=== PATIENT | female | born 1990 | race Caucasian/White ===

== ENCOUNTER → 2020-04-04 08:11 | Outpatient (BNVA) | payer OTHER, SELFPAY | PROVIDERS: PCP Family Medicine; Referring Provider Family Medicine; Visit Provider Surgery | DX: E66.01 Morbid (severe) obesity due to excess calories (principal); Z68.43 Body mass index [BMI] 50.0-59.9, adult | CPT/HCPCS: 99214; Q3014 ==

== ENCOUNTER 2020-04-06 11:49 | Outpatient (REF) | payer MEDICARE, MEDICAID, SELFPAY ==
[2020-04-06 13:07] LABS: MANUAL DIFF FLAG NO
[2020-04-06 13:12] LABS: Basophils Percent Auto 0.3 % (0-2); Eosinophils Absolute Auto 0.2 X10*3/uL (0.0-0.4); Eosinophils Percent Auto 2.7 % (0-4); Hematocrit 38.7 % (37-47); Hemoglobin 12.6 g/dl (12.0-16.0); Imm Gran Abs Auto 0.01 X10*3/uL (0.00-0.03); Imm Gran Pct Auto 0.1 % (0.0-0.4); Lymphocytes Absolute Auto 2.3 X10*3/uL (1.2-4.9); Lymphocytes Percent Auto 33.3 % (20-40); Mean Corpuscular HGB Conc 32.6 g/dl (31.0-35.0); Mean Corpuscular Hemoglobin 25.3 pg (27.0-33.0); Mean Corpuscular Volume 77.6 fL (80-98); Mean Platelet Volume 10.4 fL (9.4-12.3); Monocytes Absolute Auto 0.4 X10*3/uL (0.1-1.2); Monocytes Percent Auto 6.2 % (2-11); Neutrophils Percent Auto 57.4 % (45-73); Platelet Count 371 X10*3/uL (160-400); Red Blood Count 4.99 X10*6/uL (4.20-5.50); Red Cell Distribution Width 16.3 % (11.0-16.0); White Blood Count 6.9 X10*3/uL (4.8-10.8)
[2020-04-06 13:49] LABS: Alanine Aminotransferase 27 U/L (0-31); Albumin Level 4.2 g/dL (3.5-5.0); Alkaline Phosphatase 120 U/L (39-117); Anion Gap 14 (12-20); Aspartate Amino Transferase 24 U/L (5-31); Bilirubin Total 0.6 mg/dL (0.0-1.0); Blood Urea Nitrogen 10 mg/dL (9-16); C Reactive Protein 1.68 mg/dL (< or = 0.50); Calcium 8.8 mg/dL (8.4-10.2); Carbon Dioxide 23 mmol/L (22-29); Chloride 105 mmol/L (96-108); Cholesterol 135 mg/dL; Estimated Glomerular Filt Rate > 60; Glucose Random 80 mg/dL (60-115); HDL Cholesterol 52 mg/dL; Iron 34 mcg/dL (30-160); LDL Cholesterol Calculated 70 mg/dl; Percent Iron Saturation 8 % (15-50); Potassium 4.1 mmol/l (3.3-5.1); Sodium 138 mmol/L (135-145); Total Iron Binding Capacity 424 mcg/dL (228-428); Total Protein 7.2 g/dL (6.5-8.0); Triglycerides 65 mg/dL; Unsaturated Iron Binding 390 ug/dL
[2020-04-06 14:12] LABS: Estimated Average Glucose 100 mg/dL; Hemoglobin A1c % 5.1 %
[2020-04-06 14:13] LABS: Ferritin 5 ng/mL (10-122); TSH reflex Free T4 2.58 mIU/mL (0.32-4.0); Vitamin D 25-OH Total 25.6 ng/mL (>30)
[2020-04-09 13:52] LABS: Insulin Level Total 8.2 uIU/mL
[2020-04-09 16:32] LABS: PTHI 63 pg/mL (14-64)
[2020-04-09 17:21] LABS: Zinc 65 mcg/dL (60-130)
[2020-04-09 21:54] LABS: Folate 10.9 ng/mL (> or = 4.0); Vitamin B12 506 pg/mL (200-900)
[2020-04-11 12:31] LABS: Vitamin B1 11 nmol/L (8-30)
[2020-04-11 17:11] LABS: Vitamin A 28 mcg/dL (38-98)
== END 2020-04-06 11:50 | disposition home or self-care (01) ==
LOC: HO.LAB 11:49
PROVIDERS: PCP Family Medicine; Visit Provider Surgery
DX: E66.01 Morbid (severe) obesity due to excess calories (principal)
CPT/HCPCS: 36415; 80053; 80061; 82306; 82607; 82728; 82746; 83036; 83525; 83540; 83970; 84425; 84443; 84590; 84630; 85025; 86140

== ENCOUNTER → 2020-04-13 08:08 | Outpatient (BNVA) | payer MEDICAID, OTHER, SELFPAY | PROVIDERS: PCP Family Medicine; Referring Provider Family Medicine; Visit Provider Dietitian, Registered | DX: Z76.89 Persons encountering health services in other specified circumstances (principal) ==

== ENCOUNTER 2020-04-16 08:50 | Outpatient (REF) | payer OTHER, SELFPAY ==
--- NOTE | 2020-04-16 08:57 | FL_ITS ---
EXAMINATION: XR GI SERIES CLINICAL INFORMATION: Obesity. COMPARISON: None TECHNIQUE: Routine upper GI air contrast study was performed. FINDINGS: Following oral administration of thick barium and effervescent granules there is normal propagation of bolus from the oral cavity through the pharynx, esophagus into stomach without any evidence of obstruction, narrowing or stricture. On placing patient supine and prone lying there is normal course, caliber and peristalsis of stomach, duodenal bulb and sweep. No gastroesophageal reflux or hiatal hernia seen. FLUOROSCOPY TIME: 1.9 minutes DOSE AREA PRODUCT: 58.4 uGy-m2 (microgray-meter squared) IMPRESSION: Unremarkable upper GI air-contrast study.
[2020-04-19 13:47] LABS: H Pylori Breath Test NOT DETECTED (NOT DETECTED)
== END 2020-04-16 08:51 | disposition home or self-care (01) ==
LOC: HO.XRAY 08:50
PROVIDERS: PCP Family Medicine; Visit Provider Surgery
DX: Z01.818 Encounter for other preprocedural examination (principal); E66.01 Morbid (severe) obesity due to excess calories; A04.8 Other specified bacterial intestinal infections; K21.9 Gastro-esophageal reflux disease without esophagitis
CPT/HCPCS: 74240; 83013; 99211

== ENCOUNTER 2020-04-23 09:39 | Outpatient (REF) | payer OTHER, SELFPAY ==
--- NOTE | 2020-04-23 | US_ITS ---
EXAMINATION: CHEST. ULTRASOUND ABDOMEN COMPLETE. CLINICAL INFORMATION: Obesity. Preop exam. COMPARISON: None TECHNIQUE: Chest 2 views. Routine complete abdomen ultrasound was performed. FINDINGS: CHEST: The lungs are well-expanded and clear of acute process. The heart size and pulmonary vascularity is normal. No gross bony pneumonia seen. ABDOMEN ULTRASOUND: The pancreas is homogeneous echotexture without focal lesion or enlargement. The liver is normal size, shape and position. There is mild increased echogenicity without any focal lesion. No intrahepatic ductal dilatation seen. Normal hepatopedal flow seen in the portal vein on Doppler exam. Right hepatic lobe measures 14.1 cm and left hepatic lobe measures 8.3 cm. On Elastography the median value is 1.41 m/s. IQR/median is 0.11. There are no echogenic gallstones or wall thickening. Right kidney measures 10.0 cm in length and left kidney measures 11.0 cm in length. There are no echogenic stones, cyst or hydronephrosis. There is minimal fullness of calyces left kidney. Spleen measures 8.7 cm in length. US/US abdomen comp w elastography IMPRESSION: Unremarkable chest exam. Mild hepatic steatosis without focal lesion. Mild fullness left kidney pelvis. Rest of the abdomen is unremarkable. Elastography: Normal to mild, Metavir score F0 - F1.
--- NOTE | 2020-04-23 09:45 | XR_ITS ---
EXAMINATION: CHEST. ULTRASOUND ABDOMEN COMPLETE. CLINICAL INFORMATION: Obesity. Preop exam. COMPARISON: None TECHNIQUE: Chest 2 views. Routine complete abdomen ultrasound was performed. FINDINGS: CHEST: The lungs are well-expanded and clear of acute process. The heart size and pulmonary vascularity is normal. No gross bony pneumonia seen. ABDOMEN ULTRASOUND: The pancreas is homogeneous echotexture without focal lesion or enlargement. The liver is normal size, shape and position. There is mild increased echogenicity without any focal lesion. No intrahepatic ductal dilatation seen. Normal hepatopedal flow seen in the portal vein on Doppler exam. Right hepatic lobe measures 14.1 cm and left hepatic lobe measures 8.3 cm. On Elastography the median value is 1.41 m/s. IQR/median is 0.11. There are no echogenic gallstones or wall thickening. Right kidney measures 10.0 cm in length and left kidney measures 11.0 cm in length. There are no echogenic stones, cyst or hydronephrosis. There is minimal fullness of calyces left kidney. Spleen measures 8.7 cm in length. XR/XR chest 2V IMPRESSION: Unremarkable chest exam. Mild hepatic steatosis without focal lesion. Mild fullness left kidney pelvis. Rest of the abdomen is unremarkable. Elastography: Normal to mild, Metavir score F0 - F1.
--- NOTE | 2020-04-23 11:01 | ECG_ITS ---
Test Reason : PREOP SOB Blood Pressure : / mmHG Vent. Rate : 078 BPM Atrial Rate : 077 BPM P-R Int : 148 ms QRS Dur : 078 ms QT Int : 388 ms P-R-T Axes : 035 027 025 degrees QTc Int : 442 ms Normal sinus rhythm Normal ECG When compared with ECG of 23-APR-2020 11:19, No significant changes seen Referred By: Bharathi Junior Electronically Signed By: DAVID FLOOD MD [facility]ILITYKaren
== END 2020-04-23 09:40 | disposition home or self-care (01) ==
LOC: HO.US 09:39
PROVIDERS: PCP Family Medicine; Visit Provider Surgery
DX: Z01.818 Encounter for other preprocedural examination (principal); E66.01 Morbid (severe) obesity due to excess calories; K21.9 Gastro-esophageal reflux disease without esophagitis
CPT/HCPCS: 71046; 76705; 76981; 93005

== ENCOUNTER → 2020-05-02 08:27 | Outpatient (BNVA) | payer OTHER, SELFPAY | PROVIDERS: PCP Family Medicine; Visit Provider Dietitian, Registered | DX: Z76.89 Persons encountering health services in other specified circumstances (principal) ==

== ENCOUNTER → 2020-05-09 08:28 | Outpatient (REF) | payer OTHER, SELFPAY ==
--- NOTE | 2020-05-09 08:43 | CA_ITS ---
Acquisition Time: 2020-05-09 09:45:18 Total Exercise Time: 00:05:59 Test Indications: Pre-Op Evaluation Medications: Protocol: ARTIE Max HR: 171 BPM 90% of Pred: 190 BPM Max BP: 124/070 mmHG Max Work Load: 7.0 METS Exercise stress test using Artie protocol. Total of 5 min 59 sec. METS 7. Tolerated well denies any anginal sx. EKG without any arrhythmias, no ischemic changes. Normotensive response to exercise. Test reviewed with Dr. Lauren Referred By: Bharathi Junior Overread By: Zuleima Almanzar
--- NOTE | 2020-05-09 10:00 | CA_ITS ---
Transthoracic Echocardiogram Patient (Last, First, Middle): Luanne Wood, Gender: Female Date of : 1990 Age: 29 Procedure Date: 05/09/2020 Procedure Type: Transthoracic Echocardiogram Location: OP Height: 152.4 cm Weight: 116.12 kg BSA: 2.07 m2 Heart Rate: bpm BP: 138 / 70 mmHg Merchandise Marker: Referring MD: Bharathi Junior MD Change Booth Attendant: Lionel Jeong MD Symptoms: I10 HTN, Z01.818 PRE OP Study Quality: Fair ECG Rhythm: Sinus Conclusions: - Essentially normal study Findings Procedure Information Contrast agent, definity, is being given per protocol without apparent complications. Left Ventricle Normal left ventricular size, thickness, and systolic function. The visually estimated ejection fraction is between 60-65%. Diastolic function is normal for age. Right Ventricle Normal right ventricular cavity size and systolic function. Atria Both atria are normal in size. Interatrial shunt cannot be excluded. Aortic Valve The aortic valve was not well visualized. There is no aortic valve stenosis. There is no aortic valve regurgitation. Mitral Valve Likely normal mitral valve structure and function. There is trace mitral valve regurgitation. There is no mitral valve stenosis. Pulmonic Valve The pulmonic valve was not well visualized. Tricuspid Valve Likely normal tricuspid valve structure and function. There is trace tricuspid valve regurgitation. The right ventricular systolic pressure is normal. Great Vessels All visible segments of the aorta are normal in size. The pulmonary artery was not well visualized. Venous The inferior vena cava is normal in size and collapses greater than 50% with inspiration. Pericardium/Pleural There is no evidence of pericardial effusion. Prior Study Comparison No prior study available for comparison. Measurements 2D Linear Measurements IVSd: 1.28 0.6-0.9/0.6-1.0 cm LVIDd: 4.17 3.9-5.3/4.2-5.9 cm LVIDd Index: 2.01 2.4-3.2/2.2-3.1 cm/m2 LVIDs: 2.27 2.0-3.6 cm LVPWd: 1.28 0.7-1.1 cm Ao Root: 2.80 2.1-3.5 cm LA Diam: 3.00 2.7-3.8/3.0-4.0 cm LAIDs Index: 1.45 1.5-2.3 cm/m2 LV Mass: 241.60 67-162/88-224 g LV Mass Index: 116.72 43-95/49-115 g/m2 LVOT Diam: 2.00 3.0+(-)1.3 cm Mitral Valve MV Pk E: 0.91 MV PK A: 0.59 MV Decel Time: 130.00 E/A: 1.60 E'Lateral: 13.50 E'Medial: 9.09 E/E' Med: 10.00 E/E' Lat: 6.80 PHT: 38.00 MVA PHT: 5.79 Decel [place]: 7.11 Aortic Valve AoV Pk Stephen: 1.25 AoV Mn Stephen: 0.85 AoV VTI: 0.25 AoV Pk Grad: 6.00 Aov Mn Grad: 3.00 IGOR Cont.VTI: 2.51 LVOT LVOT Pk Stephen: 1.00 LVOT Mn Stephen: 0.63 LVOT VTI: 0.20 LVOT Pk Grad: 4.00 LVOT Mn Grad: 2.00 LVOT Diam: 2.00 LVOT Area: 3.14 Diastolic Function MV Pk E: 0.91 MV Pk A: 0.59 E/A: 1.60 E'Medial: 9.09 E/E' Med: 10.00 E' Laterial: 13.50 E/E' Lat: 6.80 Tricuspid Valve TR Pk Stephen: 1.40 TR Pk Grad: 8.00 RA Press: 3.00 RVSP: 11.00 Great Vessels Aorta Ao Root-2D: 2.80 2.0-3.7 cm Ao Asc: 2.90 2.1-3.4 cm Pulmonary Valve PV Pk Stephen: 1.18 Peak PV Grad: 6.00 Updated in Other Vendor System with Status of Final Lionel Jeong MD electronically signed on 05/10/2020 3:01:45 PM with status of Final
== END ==
LOC: HO.CARD 08:28
PROVIDERS: PCP Family Medicine; Visit Provider Surgery
DX: Z01.818 Encounter for other preprocedural examination (principal); I21.29 ST elevation (STEMI) myocardial infarction involving other sites; R94.31 Abnormal electrocardiogram [ECG] [EKG]; I10 Essential (primary) hypertension
CPT/HCPCS: 93017; 93306; Q9957

== ENCOUNTER → 2020-05-30 08:27 | Outpatient (BNVA) | payer OTHER, SELFPAY | PROVIDERS: PCP Family Medicine; Visit Provider Surgery | DX: Z13.89 Encounter for screening for other disorder (principal) | CPT/HCPCS: Q3014 ==

== ENCOUNTER → 2020-06-13 13:45 | Outpatient (BNVA) | payer OTHER, SELFPAY | PROVIDERS: PCP Family Medicine; Visit Provider Surgery | DX: E66.01 Morbid (severe) obesity due to excess calories (principal); K21.9 Gastro-esophageal reflux disease without esophagitis | CPT/HCPCS: Q3014 ==

== ENCOUNTER 2020-06-15 09:06 | Outpatient (REF) | payer OTHER, SELFPAY ==
[2020-06-15 10:27] LABS: MANUAL DIFF FLAG NO
[2020-06-15 10:36] LABS: Basophils Percent Auto 0.2 % (0-2); Eosinophils Absolute Auto 0.2 X10*3/uL (0.0-0.4); Eosinophils Percent Auto 2.9 % (0-4); Hematocrit 43.5 % (37-47); Hemoglobin 14.3 g/dl (12.0-16.0); Imm Gran Abs Auto 0.01 X10*3/uL (0.00-0.03); Imm Gran Pct Auto 0.1 % (0.0-0.4); Lymphocytes Absolute Auto 2.8 X10*3/uL (1.2-4.9); Lymphocytes Percent Auto 33.7 % (20-40); Mean Corpuscular HGB Conc 32.9 g/dl (31.0-35.0); Mean Corpuscular Hemoglobin 25.5 pg (27.0-33.0); Mean Corpuscular Volume 77.5 fL (80-98); Mean Platelet Volume 10.2 fL (9.4-12.3); Monocytes Absolute Auto 0.6 X10*3/uL (0.1-1.2); Monocytes Percent Auto 7.4 % (2-11); Neutrophils Absolute Auto 4.6 X10*3/uL (2.0-8.3); Neutrophils Percent Auto 55.7 % (45-73); Platelet Count 371 X10*3/uL (160-400); Red Blood Count 5.61 X10*6/uL (4.20-5.50); Red Cell Distribution Width 19.2 % (11.0-16.0); White Blood Count 8.2 X10*3/uL (4.8-10.8)
[2020-06-15 10:44] LABS: INTERNATIONAL NORM RATIO 1.1 (0.9-1.1); Prothrombin Time 13.4 SEC (10.8-13.0)
[2020-06-15 10:49] LABS: Alanine Aminotransferase 39 U/L (0-31); Albumin Level 4.2 g/dL (3.5-5.0); Alkaline Phosphatase 132 U/L (39-117); Anion Gap 17 (12-20); Aspartate Amino Transferase 28 U/L (5-31); Bilirubin Total 1.2 mg/dL (0.0-1.0); Blood Urea Nitrogen 13 mg/dL (9-16); C Reactive Protein 1.71 mg/dL (< or = 0.50); Calcium 9.1 mg/dL (8.4-10.2); Carbon Dioxide 19 mmol/L (22-29); Chloride 105 mmol/L (96-108); Cholesterol 148 mg/dL; Estimated Average Glucose 100 mg/dL; Estimated Glomerular Filt Rate > 60; Glucose Random 90 mg/dL (60-115); HDL Cholesterol 53 mg/dL; Hemoglobin A1c % 5.1 %; LDL Cholesterol Calculated 76 mg/dl; Potassium 4.2 mmol/l (3.3-5.1); Sodium 137 mmol/L (135-145); Total Protein 7.8 g/dL (6.5-8.0); Triglycerides 96 mg/dL
[2020-06-15 11:10] LABS: TSH reflex Free T4 4.69 mIU/mL (0.32-4.0)
[2020-06-15 12:20] LABS: Free T4 (Free Thyroxine) 1.12 ng/dL (0.71-1.85)
[2020-06-16 06:57] LABS: Insulin Level Total 8.6 uIU/mL
== END 2020-06-15 09:07 | disposition home or self-care (01) ==
LOC: HO.LAB 09:06
PROVIDERS: Visit Provider Surgery
DX: I21.29 ST elevation (STEMI) myocardial infarction involving other sites (principal); R21 Rash and other nonspecific skin eruption
CPT/HCPCS: 36415; 80053; 80061; 83036; 83525; 84439; 84443; 85025; 85610; 85730; 86140; 99212

== ENCOUNTER 2020-06-19 06:14 | Inpatient (IN) | payer OTHER, SELFPAY ==
[2020-06-14 14:10] VITALS: BMI 48.6
--- NOTE | 2020-06-18 10:13 | HO.ANESPROP2 ---
Documented by User: Jessy Nguyen 06/18/20 10:20 HPI - Anesthesia Eval Consult details Narrative: 29yo F for Gastrectomy Sleeve,egd,poss diaphragmatic hernia,poss ventral hernia,poss open, PMFSH Past Medical History Medical History (Updated 06/19/20 @ 08:05 by Roula Jerez) Anemia Anxiety Depression GERD (gastroesophageal reflux disease) Hx of migraine headaches Morbid obesity [place] (obstructive sleep apnea) Rash and nonspecific skin eruption Family History Family History Father Blood clot in vein Heart disease Mother No problems noted. Brother No problems noted. Surgical History Surgical History History of esophagogastroduodenoscopy (EGD) S/P tonsillectomy Social History Social History Are you a primary care connector to a significant other at home: No Do you presently have visiting nurse or other home services: No Alcohol intake: current Alcohol intake frequency: other Smoking Status: Never smoker Use of substances other than those prescribed or required for medical reasons: Yes Substance Use Type: Marijuana Substance Use Frequency: Socially Have you been hit, kicked, punched, or otherwise hurt by someone within the past year? If so, by whom?: No Advance Directives: Yes Advance Directives Information Provided: Yes Advance Directives on File: Yes Advance Directives Date on File: 04/16/20 Recently lost weight without trying: No Meds Allergies Allergy/AdvReac Type Severity Reaction Status Date / Time No Known Allergies Allergy Verified 06/15/20 10:41 [No Known Allergies*] Home Medications Medication Instructions Recorded Confirmed Type bupropion HCl 150 mg 24 hr tablet, 150 mg PO QAM 04/04/20 06/15/20 History extended release famotidine 40 mg tablet 40 mg PO DAILY 04/04/20 06/15/20 History fluoxetine 40 mg capsule 80 mg PO QAM 04/04/20 06/15/20 History quetiapine 50 mg tablet 50 mg PO BEDTIME 04/04/20 06/15/20 History Exam Exam Date and Time: June 18, 2020 1013 Height,Weight and Vital Signs: Height 5 ft Weight 112.854 kg Pertinent Lab Results Pertinent Lab Results: Laboratory Tests 06/15/20 09:49 Blood Type A Positive Antibody Screen NEGATIVE Laboratory Tests 06/15/20 06/15/20 09:47 09:47 WBC 8.2 Hgb 14.3 Hct 43.5 Plt Count 371 Sodium 137 Potassium 4.2 Chloride 105 Carbon Dioxide 19 L BUN 13 Creatinine 0.79 Laboratory Tests 06/15/20 06/15/20 09:47 09:47 PT 13.4 H INR 1.1 APTT 40.0 H Total Bilirubin 1.2 H AST 28 ALT 39 H Alkaline Phosphatase 132 H C-Reactive Protein 1.71 H Total Protein 7.8 Albumin 4.2 TSH 4.69 H Free T4 1.12 Narrative Narrative: EKG 03/2020: Normal sinus rhythm Septal infarct , age undetermined Abnormal ECG When compared with ECG of 02-APR-2019 14:27, Septal infarct is now Present ECHO 04/2020: - Essentially normal study Stress 04/2020: Exercise stress test using Markel protocol. Total of 5 min 59 sec. METS 7. Tolerated well denies any anginal sx. EKG without any arrhythmias, no ischemic changes. Normotensive response to exercise. Documented by User: Roula Jerez 06/19/20 08:05 [facility] Past Medical History Medical History (Updated 06/19/20 @ 08:05 by Roula Jerez) Anemia Anxiety Depression GERD (gastroesophageal reflux disease) Hx of migraine headaches Morbid obesity [place] (obstructive sleep apnea) Rash and nonspecific skin eruption Family History Family History Father Blood clot in vein Heart disease Mother No problems noted. Brother No problems noted. Family history of problems with anesthesia: No Surgical History Surgical History History of esophagogastroduodenoscopy (EGD) S/P tonsillectomy History of Problems with Anesthesia: No Social History Social History Are you a primary care connector to a significant other at home: No Do you presently have visiting nurse or other home services: No Alcohol intake: current Alcohol intake frequency: other Smoking Status: Never smoker Use of substances other than those prescribed or required for medical reasons: Yes Substance Use Type: Marijuana Substance Use Frequency: Socially Have you been hit, kicked, punched, or otherwise hurt by someone within the past year? If so, by whom?: No Advance Directives: Yes Advance Directives Information Provided: Yes Advance Directives on File: Yes Advance Directives Date on File: 04/16/20 Recently lost weight without trying: No Meds Allergies Allergy/AdvReac Type Severity Reaction Status Date / Time No Known Allergies Allergy Verified 06/15/20 10:41 [No Known Allergies*] Home Medications Medication Instructions Recorded Confirmed Type bupropion HCl 150 mg 24 hr tablet, 150 mg PO QAM 04/04/20 06/15/20 History extended release famotidine 40 mg tablet 40 mg PO DAILY 04/04/20 06/15/20 History fluoxetine 40 mg capsule 80 mg PO QAM 04/04/20 06/15/20 History quetiapine 50 mg tablet 50 mg PO BEDTIME 04/04/20 06/15/20 History Exam Height,Weight and Vital Signs: Vital Signs Temp Pulse Resp BP Pulse Ox 06/19/20 06:21 97.7 F 103 H 18 144/97 H 97 Lab Results 06/15/20 06/19/20 06/19/20 Range/Units 09:49 06:10 06:10 Urine Test NEGATIVE (NEGATIVE) COVID-19 (AMA) Negative (Negative) COVID-19 Clin Com See Note Blood Type A Positive Antibody Screen NEGATIVE Airway Mallampati Class: II TM Dist: >3cm Neck ROM: Full Partial: Upper Loose/Missing/Broken Teeth: Yes (Missing top front- wears partial dentures) Heart: RRR Lungs: CTAB Assessment and Plan Assessment Anesthesia Assessment: Anesthesia Plan Discussed and Chart Reviewed Final Anesthetic Review NPO: Yes ASA Class: III Final Preanesthetic Review: No Changes in Pt Med Stat, Meds/Allgs Chart Reviewed, Consent Obtained/Reviewed and Anes Risks/Benef Reviewed Patient Risk: High Procedure Risk: Intermediate Assessment/Block/Sedation in SS: Assess/Block/Sedation- Anesthetic Plan Anesthetic Plan: GA Disposition: Extended PACU
--- NOTE | 2020-06-18 14:58 | MHC.SHP ---
Pre-Procedural Eval Section A The patient is an INPATIENT: Yes The History & Physical has been completed within 30 days and I have reviewed it.: Yes Section B Chief Complaint: severe obesity Details of Present Illness: Morbid obesity Relevant Family History (Specify if Yes): No Relevant Social History: None Present Medications: see Short Stay Collaborative assessment Medical History: No relevant PMH History of Previous Operations: No relevant previous surgery Allergies: Allergies Allergy/AdvReac Type Severity Reaction Status Date / Time No Known Allergies Allergy Verified 06/15/20 10:41 [No Known Allergies*] Review of Systems Sugical H&P ROS: Negative: Constitution, Cardiovascular, Respiratory, Neurological, Psychiatric, Hem-Onc, Allergic/Immunologic, Gastrointestinal, Genitourinary, Musculoskeletal, Integumentary, Endocrine and Eyes/Ears/Nose/Throat Exam Surgical H&P Exam: Normal: HEENT, Normal: Heart, Normal: Lungs, Normal: Extremities, Normal: Abdomen, Normal: Skin and Normal: Neurological Plan Diagnosis/Plan: Unchanged I have reviewed the history and physical and performed a pertinent physical examination on my patient. No changes have occurred unless specified.
[2020-06-19] VITALS (13 sets, daily range): BP systolic 107–164; BP diastolic 51–97; PULSE 79–140; RESP 18–20; TEMP 36.2–36.8; O2SAT 83–99
--- NOTE | 2020-06-19 | ECG_ITS ---
Test Reason : TACHYCARDIA Blood Pressure : / mmHG Vent. Rate : 131 BPM Atrial Rate : 131 BPM P-R Int : 112 ms QRS Dur : 084 ms QT Int : 398 ms P-R-T Axes : 000 029 021 degrees QTc Int : 587 ms Sinus tachycardia Otherwise normal ECG When compared with ECG of 19-JUN-2020 11:07, No significant change was found Referred By: Roula Jerez Electronically Signed By: MARIZA TANNER MD MTDD
[2020-06-19 06:37] LABS: UPreg QC Valid YES; Urine Pregnancy NEGATIVE (NEGATIVE)
[2020-06-19 06:53] LABS: COVID-19 Test Negative (Negative)
[2020-06-19] MEDS: ceFAZolin Sodium/Dextrose,Iso 2 GM/50 ML PIGGYBACK IV ×2 (06:57→13:46)
[2020-06-19] MEDS: Lactated Ringers 1,000 ML 100 ML IVCONT (06:57)
[2020-06-19] MEDS: Lactated Ringers 1,000 ML 999 ML IVCONT (06:58)
--- NOTE | 2020-06-19 07:23 | PC.NURSE ---
pt voided in br steady gait
--- NOTE | 2020-06-19 10:50 | P.BOP_ITS ---
Brief Operative Note Date of Service: 06/19/20 Pre-op diagnosis: Morbid obesity with comorbidities Post-op diagnosis: same Procedure: INITIAL PATIENT BMI ON PRESENTATION AT OUR OFFICE: 54 kg.m2 LAST BMI BEFORE SURGERY: 48.9 kg/m2 COMORBIDITIES: GERD, Depression, Anxiety, liver steatosis The patient participated in an intensive weekly lifestyle intervention and exercise program during which the patient has lost between the initial office visit and the last preoperative visit 31.5lbs, or 11.42% of initial actual body weight. The patient met the BMI-criteria for bariatric surgery based on the BMI on initial presentation. The patient should not be penalized for achieving such weight loss because it is not sustainable long-term without surgical intervention and it was achieved in preparation for bariatric surgery under my direction and based on my published research ([email or web address] and [email or web address]) that a 10% preoperative weight loss improves long-term weight loss after surgery and reduces perioperative complications. Insurance carriers such as [facility] have endorsed my recommendations and have included in their policies criteria to in clude a 10% preoperative weight loss requirement. PROCEDURE: Esophago-gastroscopy, laparoscopic sleeve gastrectomy and laparoscopic gastropexy INDICATIONS: This is a 29 year-old female who was electively scheduled for laparoscopic, possibly open sleeve gastrectomy. The risks and complications of the procedure were discussed with the patient in advance, particularly the possibility of ; pulmonary embolism; staple line leak; bleeding; GERD; cardiac, pulmonary, or renal complications; as well as long-term problems such as insufficient weight loss, vitamin deficiency, strictures, or ulcers. The patient understood all the risks, and was in agreement to proceed with surgery. DESCRIPTION OF PROCEDURE: After informed consent was obtained from the patient, the patient was given preoperative antibiotics, and was transferred to the operating room. After successful induction of general anesthesia, pneumatic compressive devices were placed on both lower extremities. An upper endoscopy was performed next. The oropharynx and esophagus appeared to be within normal limits. There was no diaphragmatic hernia present consistent with the findings of the preoperative upper GI. The stomach was entered. Then after all fluid and air were suctioned and the stomach was fully decompressed, the scope was withdrawn and secured in the mid esophagus. The patient was then prepped and draped in the usual sterile manner, and abdominal access was established at the right upper quadrant with the Donya technique. A 12 mm blunt port was inserted, and the abdomen was insufflated with CO2 to a pressure of 15 mmHg. Under direct visualization, additional ports were placed, specifically two 5 mm Versi-step ports to the left upper quadrant, and a 5 mm Versi-Step port to the right upper quadrant. 1% lidocaine plan was used to infiltrate all port sites as well as all fascia defects. Using the EndoClose suture passer device, we placed a #1 Polysorb tie across the falciform ligament in order to retract it up against the abdominal wall and prevent injury of the ligament with our instruments during the procedure. Following that, the patient was placed in a steep reverse Trendelenburg position. An additional 5 mm port was placed to the right flank for the Mediflex retractor that was used to retract the left lobe of the liver. The gastro-esophageal fat pad was opened with the ultrasonic device ( Thunderbeat, Olympus) and the anterior esophagus and hiatus were exposed. The angle of His was opened with the ultrasonic device the fundus of the stomach from any diaphragmatic and splenic attachments. I then opened the gastrocolic ligament between the transverse colon and the greater curvature of the stomach with the ultrasonic device to enter the lesser sac and facilitate the ligation of the short gastric vessels. I started at a mid-point along the greater curvature and using the Thunderbeat, all short gastric vessels were divided all the way to the angle of His until the left saeed was completely dissected at its entirety. I then divided the gastro-colic ligament distally to a distance of about 3-4 cm proximal to the esophagus. The stomach was then divided transversely with two Endo KONSTANTIN-45 and three KONSTANTIN-60 articulating purple loads using the [employer] stapler and loads. Every effort was made that the gastric sleeve had a tubular shape and an even caliber throughout. Once the sleeve resection was completed, the staple line of the gastric sleeve was reinforced with Hemoclips. The resected stomach was retrieved without difficulty from the Donya port. A gastropexy was then performed in order to prevent postoperative GERD and partial gastric volvulus. Several interrupted 2.0 Surgidac sutures were placed between the sleeve's staple line and the previously divided greater omentum and gastro-colic ligament using the Endo-Stitch device. An upper endoscopy was performed. There was no narrowing at the GE junction. The scope was easily advanced all the way to the pylorus which was clearly visualized. There was no narrowing anywhere and the sleeve's caliber was even throughout. The sleeve's staple line was inspected and there was no evidence of ischemia, bleeding or dehiscence. At that point the gastroscope was withdrawn from the patient?s mouth while we were decompressing the bowel and the stomach from any remaining air. I looked into the lesser sac to see how the sleeve was situating and it was situating well. There was no bleeding from the staple line, spleen, or short gastric vessels. The Mediflex retractor was removed, and the undersurface of the liver was inspected and there was no bleeding. The patient was placed in supine position. I closed the fascial defect of the 12 mm port site with a figure of eight #1 Polysorb suture. Then 100 cc 0.25 % Marcaine plain with 10 mg of Dexamethasone were used to infiltrate the fascial closure as well as all skin incisions. At this point, the abdomen was deflated, all ports were removed under direct vi arpita, and no bleeding was noted from any of the port sites. The skin incisions were irrigated with saline and were closed with 4-0 absorbable monofilament sutures. Steri-Strips and OpSites were used to cover all incisions. The patient was extubated and was transferred in stable condition to the recovery room for further care. I was present and performed all de león parts of the procedure. Ms. Garciason was the digital marketing assistant. There were no residents to assist with this case. Bob Junior MD, PhD, FACS Surgeon: Bharathi Junior MD Anesthesia: GETA, local and other (TAP block) Clubhouse Manager: Ricarda Jacobo Estimated blood loss (mL): 10 IV fluids (mL): 3,000 Urine output (mL): 0 (No Venegas to record) Pathology: other (Stomach) Condition: stable Disposition: PACU
--- NOTE | 2020-06-19 10:56 | PM.PNGS ---
Subjective Subjective Date of Service: 06/20/20 Interval history: Feels well. mild incisional pain. Was able to ambulate and use the incentive spirometer. Physical Exam Vital Signs: Vital Signs: Last Vital Signs Temp 97.7 F 06/19/20 06:21 Pulse 103 H 06/19/20 06:21 Resp 18 06/19/20 06:21 BP 144/97 H 06/19/20 06:21 Pulse Ox 97 06/19/20 06:21 Body Mass Index 48.6 GI: Inspection: Yes normal to inspection, Yes incision (clean, dry and intact) and Yes obesity Extrem: Right lower extremity: normal to inspection (no calf tenderness) Left lower extremity: normal to inspection (no calf tenderness) Progress Note: A&P Assessment and plan (1) Morbid obesity: Status: Acute Assessment and Plan: 29 year old female was admitted 06/19/20 with morbid obesity and comorbidities. Problem 1: s/p laparoscopic sleeve gastrectomy, gastropexy Status: Doing well Plan: Check am labs, If OK, will continue phase 1 bariatric diet and discharge later today. (2) GERD (gastroesophageal reflux disease): Status: Acute (3) Depression: Status: Acute (4) Anxiety: Status: Acute (5) Anemia: Status: Acute (6) Abnormal EKG: Problem details: Denies any cardiac symptoms Status: Acute (7) Rash and nonspecific skin eruption: Status: Acute (8) ORVILLE (obstructive sleep apnea): Problem details: ?ORVILLE/snoring. Never had sleep study. Status: Acute (9) S/P laparoscopic sleeve gastrectomy: Status: Acute Fall Risk Details Current Medications: Current Medications Generic Name Dose Route Start Last Admin Trade Name Freq PRN Reason Stop Dose Admin Famotidine 20 mg 06/19/20 11:00 Famotidine/Pf 20 Mg/2 Ml Vial IVPUSH BID LISA Fentanyl 25 mcg 06/19/20 08:05 Fentanyl Citrate/Pf 100 Mcg/2 Ml Vial IVPUSH Q5M PRN Pain, Moderate (Pain Scale 4-6 Hydromorphone HCl 0.25 mg 06/19/20 08:05 Hydromorphone Hcl 0.5 Mg/0.5 Ml Syringe IVPUSH Q5M PRN Pain, Severe (Pain Scale 7-10) Hydromorphone HCl 0.25 mg 06/19/20 10:48 Hydromorphone Hcl 0.5 Mg/0.5 Ml Syringe IVPUSH Q4H PRN Pain, Moderate (Pain Scale 4-6 Lactated Ringer's 1,000 mls @ 100 mls/hr 06/19/20 06:15 06/19/20 06:57 Lr IVCONT 100 mls/hr .Q10H LISA Administration Lactated Ringer's 1,000 mls @ 150 mls/hr 06/19/20 11:00 Lr IVCONT .Q6H40M LISA Cefazolin Sodium/Dextrose 2 gm in 50 mls @ 100 mls/hr 06/19/20 10:48 Ancef IV 06/19/20 11:17 POSTOP ONE Acetaminophen 1,000 mg in 100 mls @ 16.7 mls/hr 06/19/20 11:00 Ofirmev IV .Q6H LISA Ondansetron HCl 4 mg 06/19/20 08:05 Ondansetron Hcl 4 Mg/2 Ml Vial IVPUSH ONCE PRN Nausea and Vomiting Quetiapine Fumarate 50 mg 06/19/20 21:00 Quetiapine Fumarate 50 Mg Tablet PO BEDTIME LISA Sodium Chloride 3 ml 06/19/20 16:00 0.9 % Sodium Chloride Flush 3 Ml Syringe IVFLUSH QSHIFT LISA Time Spent With Patient Time: Total time spent is greater than 50% in coordination of care (as documented) at patient's floor/unit and/or counseling patient: Time with patient: less than 15 minutes
--- NOTE | 2020-06-19 11:12 | HO.POSTANES ---
Post Anesthesia Evaluation Post Anesthesia Evaluation Vital Signs: Vital Signs Temp Pulse Resp BP Pulse Ox 06/19/20 10:47 97.1 F 130 H 18 160/82 H 95 06/19/20 06:21 97.7 F 103 H 18 144/97 H 97 Patient in PACU post op. HR up to 140. Anxious. Denies pain. Temperature wnl. 12 lead EKG Sinus Tachycardia. Pre-op HR 103. Pre-op EKG abnormal but echo and stress test did not show any abnormalities. Will treat to control HR a little. Received total of 30mg of esmolol. HR fown to 106(baseline), BP 134/82.
--- NOTE | 2020-06-19 11:16 | PM.DS ---
DS: Providers Provider Date of admission: 06/19/20 06:14 Primary care physician: Estephania Momin MD DS: Diagnosis Discharge Diagnosis (1) Morbid obesity: Status: Acute (2) GERD (gastroesophageal reflux disease): Status: Acute (3) Depression: Status: Acute (4) Anxiety: Status: Acute (5) Anemia: Status: Acute (6) Abnormal EKG: Status: Acute Problem details: Denies any cardiac symptoms (7) Rash and nonspecific skin eruption: Status: Acute (8) ORVILLE (obstructive sleep apnea): Status: Acute Problem details: ?ORVILLE/snoring. Never had sleep study. (9) S/P laparoscopic sleeve gastrectomy: Status: Acute DS: Medications Discharge Medications Home Medications: Home Medications Medication Instructions Recorded Confirmed bupropion HCl 150 mg 24 hr tablet, 150 mg PO QAM 04/04/20 06/15/20 extended release famotidine 40 mg tablet 40 mg PO DAILY 04/04/20 06/15/20 fluoxetine 40 mg capsule 80 mg PO QAM 04/04/20 06/15/20 quetiapine 50 mg tablet 50 mg PO BEDTIME 04/04/20 06/15/20 Previous Rx's Medication Instructions Recorded iron,carbonyl 65 mg-vitamin C 125 1 tab PO DAILY #30 tab 20 mg tablet,delayed release ondansetron HCl 4 mg tablet 4 mg PO Q6H PRN #30 tab 06/13/20 pantoprazole 40 mg tablet,delayed 40 mg PO DAILY #30 tab 06/13/20 release polyethylene glycol 3350 17 gram 17 g PO DAILY #14 ea 06/13/20 oral powder packet sucralfate 100 mg/mL oral 10 ml PO BID #420 ml 06/13/20 suspension DS: Summary Time Spent with Patient Time attestation: ADMITTING DIAGNOSIS: morbid obesity, DISCHARGE DIAGNOSIS: same, s/p laparoscopic sleeve gastrectomy PAST SURGICAL HISTORY: PROCEDURE: upper endoscopy, laparoscopic sleeve gastrectomy DISCHARGE SUMMARY: History of Present Illness: The patient is a 29 year-old woman with a BMI of 58 kg/m2 and associated co-morbidities as described above. The patient had extensive work-up,lost 24.6 lbs preoperatively and was electively scheduled for laparoscopic, possible open sleeve gastrectomy and gastropexy. Risks and complications of the surgery were discussed with the patient in advance, particularly the possibility of , pulmonary embolism, anastomotic leak, bleeding, bowel injury, GERD, cardiac, renal or pulmonary complications. The patient understood all the risks and was in agreement with the surgical plan. Hospital Course: The patient underwent an uneventful laparoscopic sleeve gastrectomy with gastropexy the day of admission. Postoperatively, the patient was transferred to the surgical floor. The patient was on IV Acetaminophen and IV dilaudid for pain control. Patient was started on bariatric phase 1 diet POD #0. On postoperative day one, the patient was feeling well without nausea, vomiting, fevers, or tachycardia. The patient had some mild incisional pain. The abdomen was soft. On the morning of postoperative day one, the patient was continued on 1 ounce of water or ice every half hour. During the first day, the patient did fairly well, having some incisional pain, but able to ambulate adequately and to tolerate liquids well. Since the patient is doing well, we decided that the patient was ready to be discharged. The patient was given instructions to follow-up with me next week and to call my office for any fever over 101, persistent abdominal pain, nausea, vomiting, GERD, symptoms of DVT such as calf tenderness, or leg swelling, or pulmonary embolism such as chest pain or shortness of breath. The patient was also instructed to drink 40-60 ounces of liquids per day using the 1-ounce cups. The patient was given prescription for Tylenol for pain, Zofran prn for nausea, and pantoprazole and carafate. The patient was encouraged to ambulate and use the incentive spirometer. The patient was allowed to shower, but no baths, and encouraged to stay active at home. All of these instructions were given to the patient personally. All questions were answered and the patient understood all instructions, the instructions were also given to the patient in print. otal time spent providing and/or coordinating discharge services: Physical Exam Vital Signs: Vital Signs: Last Vital Signs Temp 97.1 F 06/19/20 10:47 Pulse 114 H 06/19/20 11:12 Resp 18 06/19/20 11:12 BP 159/80 H 06/19/20 11:12 Pulse Ox 98 06/19/20 11:12 Body Mass Index 48.6 DS: Data Data Completed and Pending Pending studies at discharge: Pending at discharge 06/19/20 10:11 Surgical [PTH] Routine Labs on day of discharge: 06/15/20 09:49 Type and Screen Routine 06/18/20 14:59 ceFAZolin Sodium/Dextrose,Iso [Ancef] 2 gm in 50 ml IV PREOP 06/18/20 15:00 Lactated Ringers [Lr] 1,000 ml IVCONT 999 mls/hr 06/19/20 ECG 12 lead EKG Stat 06/19/20 06:07 Acetaminophen [Ofirmev] 1,000 mg in 100 ml IV PREOP 06/19/20 06:10 COVID-19 ID NOW ([facility]) Stat Ur Preg Test Stat 06/19/20 06:37 Acetaminophen [Ofirmev] 1,000 mg in 100 ml IV As directed ceFAZolin Sodium/Dextrose,Iso [Ancef] 2 gm in 50 ml .ROUTE As directed 06/19/20 07:43 Lidocaine HCl 2 % MPF [Xylocaine 2 % MPF] 5 ml .ROUTE .STK-MED ONE Midazolam HCl/PF [Versed] 2 mg .ROUTE .STK-MED ONE Rocuronium [place] [Zemuron] 100 mg IV .STK-MED ONE propofoL [Diprivan] 200 mg IVPUSH .STK-MED ONE 06/19/20 07:44 Ketamine HCl/NS 50 mg IVPUSH .STK-MED ONE fentaNYL citrate/PF [Sublimaze] 50 mcg .ROUTE .STK-MED ONE 06/19/20 07:58 dexAMETHasone Sod Phosphate/PF [Decadron] 10 mg .ROUTE .STK-MED ONE 06/19/20 07:59 Bupivacaine MPF 0.25 % [Sensorcaine-MPF 0.25% 10 ML] 10 ml .ROUTE .STK-MED ONE Lidocaine HCl 1 % MPF [Xylocaine 1 % MPF] 5 ml .ROUTE .STK-MED ONE 06/19/20 09:01 dexAMETHasone sod phosphate [Decadron] 4 mg .ROUTE .STK-MED ONE ondansetron HCL [Zofran] 4 mg .ROUTE .STK-MED ONE 06/19/20 09:13 HYDROmorphone HCl [Dilaudid] 2 mg .ROUTE .STK-MED ONE 06/19/20 09:51 Sugammadex Sodium [Bridion] 200 mg IVPUSH .STK-MED ONE 06/19/20 10:50 Esmolol HCl [Brevibloc] 100,000 mcg .ROUTE .STK-MED ONE Laboratory Last Values Urine Test NEGATIVE (NEGATIVE) 06/19/20 06:10 COVID-19 (AMA) Negative (Negative) 06/19/20 06:10 COVID-19 Clin Com See Note 06/19/20 06:10 Blood Type A Positive 06/15/20 09:49 Antibody Screen NEGATIVE 06/15/20 09:49 Discharge Plan Discharge Anticipated Discharge Date/Time: 06/20/20 11:19 Patient Disposition: Home, Self-Care Referrals: Estephania Momin MD [Primary Care Provider] - Discharge Medications: Continued fluoxetine [Prozac] 40 mg capsule 80 mg PO QAM RF: 0 bupropion HCl [Wellbutrin XL] 150 mg tablet extended release 24 hr 150 mg PO QAM RF: 0 quetiapine [Seroquel] 50 mg tablet 50 mg PO BEDTIME RF: 0 pantoprazole 40 mg tablet,delayed release (DR/EC) 40 mg PO DAILY Qty: 30 RF: 2 sucralfate 100 mg/mL suspension 10 ml PO BID Qty: 420 RF: 2 ondansetron HCl [Zofran] 4 mg tablet 4 mg PO Q6H PRN (Reason: nausea and vomiting) Qty: 30 RF: 0 Discontinued Vitron-C 65 mg iron- 125 mg tablet,delayed release (DR/EC) 1 tab PO DAILY Qty: 30 RF: 2 famotidine [Pepcid] 40 mg tablet 40 mg PO DAILY RF: 0 polyethylene glycol 3350 [Miralax] 17 gram powder in packet 17 g PO DAILY Qty: 14 RF: 0 Discharge Orders: Discharge Order (Routine); Ordered 06/20/20 Ordered By: Bharathi Junior Activity on Discharge: No heavy lifting Activity Restrictions/Additional Instructions: No tub baths, sex or returning to work until discussed at first post op appointment. No exercise, alcohol, tobacco or illegal drug use. Continue to use incentive spirometer hourly while awake. Walk in home for 5- 10 minutes every 2 hours during the first week. Continue phase 1 diet today and start phase 2 diet tomorrow morning. Follow all instructions in the bariatric handbook and call with any questions. Visit Report Forms: Patient Portal Discharge page Care Plan Goals: weight loss Health Concerns: morbid obesity Plan of Treatment: see discharge instructions.
[2020-06-19 11:50] LABS: MANUAL DIFF FLAG NO
[2020-06-19 12:00] LABS: Basophils Percent Auto 0.2 % (0-2); Eosinophils Percent Auto 0.3 % (0-4); Hematocrit 38.2 % (37-47); Hemoglobin 13.2 g/dl (12.0-16.0); Imm Gran Abs Auto 0.04 X10*3/uL (0.00-0.03); Imm Gran Pct Auto 0.3 % (0.0-0.4); Lymphocytes Absolute Auto 1.2 X10*3/uL (1.2-4.9); Mean Corpuscular HGB Conc 34.6 g/dl (31.0-35.0); Mean Corpuscular Hemoglobin 27.3 pg (27.0-33.0); Mean Corpuscular Volume 79.1 fL (80-98); Mean Platelet Volume 10.1 fL (9.4-12.3); Monocytes Absolute Auto 0.2 X10*3/uL (0.1-1.2); Monocytes Percent Auto 1.8 % (2-11); Neutrophils Absolute Auto 10.2 X10*3/uL (2.0-8.3); Neutrophils Percent Auto 87.4 % (45-73); Platelet Count 326 X10*3/uL (160-400); Red Blood Count 4.83 X10*6/uL (4.20-5.50); Red Cell Distribution Width 18.7 % (11.0-16.0); White Blood Count 11.7 X10*3/uL (4.8-10.8)
[2020-06-19] MEDS: Famotidine/PF 20 MG/2 ML VIAL IVPUSH ×2 (12:02→20:44)
[2020-06-19] MEDS: Lactated Ringers 1,000 ML 150 ML IVCONT (12:18)
[2020-06-19 12:29] LABS: Anion Gap 16 (12-20); Blood Urea Nitrogen 6 mg/dL (9-16); Calcium 8.3 mg/dL (8.4-10.2); Carbon Dioxide 19 mmol/L (22-29); Chloride 103 mmol/L (96-108); Creatinine Clr Calc Pharmacy 120.5; Estimated Glomerular Filt Rate > 60; Glucose Random 125 mg/dL (60-115); Potassium 4.3 mmol/l (3.3-5.1); Sodium 134 mmol/L (135-145)
[2020-06-19] MEDS: Lactated Ringers 1,000 ML 125 ML IVCONT (19:33)
[2020-06-19] MEDS: QUEtiapine Fumarate 50 MG TABLET PO (20:44)
[2020-06-19] MEDS: 0.9 % Sodium Chloride Flush 3 ML SYRINGE IVFLUSH (20:45)
[2020-06-20] MEDS: Lactated Ringers 1,000 ML 125 ML IVCONT ×2 (03:38→13:16)
[2020-06-20 03:52] VITALS: PULSE 79; RESP 19; TEMP 36.8
[2020-06-20 04:43] LABS: MANUAL DIFF FLAG NO
[2020-06-20 04:57] LABS: Basophils Percent Auto 0.1 % (0-2); Hematocrit 36.4 % (37-47); Hemoglobin 11.6 g/dl (12.0-16.0); Imm Gran Abs Auto 0.02 X10*3/uL (0.00-0.03); Imm Gran Pct Auto 0.2 % (0.0-0.4); Lymphocytes Absolute Auto 0.9 X10*3/uL (1.2-4.9); Lymphocytes Percent Auto 10.6 % (20-40); Mean Corpuscular HGB Conc 31.9 g/dl (31.0-35.0); Mean Corpuscular Hemoglobin 25.3 pg (27.0-33.0); Mean Corpuscular Volume 79.5 fL (80-98); Mean Platelet Volume 10.5 fL (9.4-12.3); Monocytes Absolute Auto 0.4 X10*3/uL (0.1-1.2); Monocytes Percent Auto 5.3 % (2-11); Neutrophils Absolute Auto 6.7 X10*3/uL (2.0-8.3); Neutrophils Percent Auto 83.8 % (45-73); Platelet Count 314 X10*3/uL (160-400); Red Blood Count 4.58 X10*6/uL (4.20-5.50); Red Cell Distribution Width 18.6 % (11.0-16.0)
[2020-06-20 05:40] LABS: Thyroid Stimulating Hormone 0.59 uIU/mL (0.32-4.0)
[2020-06-20 07:45] VITALS: BP 117/59; PULSE 75; RESP 19; TEMP 36.3; O2SAT 97
[2020-06-20] MEDS: Famotidine/PF 20 MG/2 ML VIAL IVPUSH ×2 (08:23→21:03)
--- NOTE | 2020-06-20 08:52 | MHC.CM.PN ---
IMM COMPLETE, PT TO DISCHARGE HOME SELF-CARE, , MOTHER TO TRANSPORT, PER PATIENT PTS MOTHER WILL BE STAYING WITH HER FOR ONE WEEK, PT REPORTS SHE SPOKE WITH DOCTOR ABOUT DISCHARGE LATER THIS AFTERNOON DUE TO HER MOM DRIVING FROM [place] TO PICK HER UP. HCP: PT REPORTS SHE HAS ONE AND ITS HER MOTHER, COPY REQUESTED. [facility]AP[facility] [place] PCP: DEA RUSHING
[2020-06-20 11:47] VITALS: BP 125/75; PULSE 85; RESP 18; TEMP 36.4; O2SAT 97
[2020-06-20 15:49] VITALS: BP 117/63; PULSE 81; RESP 18; TEMP 36.4; O2SAT 97
[2020-06-20 20:00] VITALS: BP 119/67; PULSE 87; RESP 18; TEMP 36.5; O2SAT 100
--- NOTE | 2020-06-21 09:51 | HO.POSTANES ---
Post Anesthesia Evaluation Post Anesthesia Evaluation Vital Signs: Patient seen 06/20 7am, VSS Anesthesia: General Endotracheal-GETA Mental Status: Awake Pain Control: Satisfactory Nausea/Vomiting: None Hydration: Adequate Anesthesia-Related Issues: No Anes. Related Issues
== END 2020-06-20 21:50 | disposition home or self-care (01) | DRG 621 ==
LOC: HO.SSSA 06:15 → HO.S3 11:37
PROVIDERS: Nurse Practitioner; Physician Assistant; Admitting Provider Surgery; PCP Family Medicine; Visit Provider Surgery
PROC: 0DB64Z3 Excision of Stomach, Percutaneous Endoscopic Approach, Vertical (ICD-10-PCS; CPT 43845; principal; 2020-06-19 08:10)
DX: E66.01 Morbid (severe) obesity due to excess calories (principal); G47.33 Obstructive sleep apnea (adult) (pediatric); F32.9 Major depressive disorder, single episode, unspecified; F41.9 Anxiety disorder, unspecified; Z68.42 Body mass index [BMI] 45.0-49.9, adult; Z20.828 Contact with and (suspected) exposure to other viral communicable diseases; K21.9 Gastro-esophageal reflux disease without esophagitis; R94.31 Abnormal electrocardiogram [ECG] [EKG]; Z79.899 Other long term (current) drug therapy
CPT/HCPCS: 36415; 80048; 81025; 84443; 85025; 86850; 86900; 86901; 87635; 88307; 88342; 93005; 99024; A4649; J0131; J0690; J1100; J1170; J2250; J2405; J3010

== ENCOUNTER → 2020-06-25 07:53 | Outpatient (BNVA) | payer OTHER, SELFPAY | PROVIDERS: Visit Provider Surgery | DX: E66.01 Morbid (severe) obesity due to excess calories (principal); Z68.42 Body mass index [BMI] 45.0-49.9, adult; Z98.84 Bariatric surgery status | CPT/HCPCS: 99212 ==

== ENCOUNTER → 2020-07-23 08:04 | Outpatient (BNVA) | payer OTHER, SELFPAY | PROVIDERS: Visit Provider Surgery | DX: E66.01 Morbid (severe) obesity due to excess calories (principal) | CPT/HCPCS: 99212 ==

== ENCOUNTER → 2020-08-24 08:22 | Outpatient (BNVA) | payer OTHER, SELFPAY | PROVIDERS: Visit Provider Surgery | DX: E66.01 Morbid (severe) obesity due to excess calories (principal); F32.9 Major depressive disorder, single episode, unspecified | CPT/HCPCS: 99212 ==

== ENCOUNTER → 2020-09-21 08:16 | Outpatient (BNVA) | payer OTHER, SELFPAY | PROVIDERS: Visit Provider Surgery | DX: E66.01 Morbid (severe) obesity due to excess calories (principal); Z68.41 Body mass index [BMI] 40.0-44.9, adult; Z71.3 Dietary counseling and surveillance | CPT/HCPCS: Q3014 ==

== ENCOUNTER → 2020-11-02 08:27 | Outpatient (BNVA) | payer OTHER, SELFPAY | PROVIDERS: Visit Provider Surgery | DX: E66.9 Obesity, unspecified (principal); Z68.37 Body mass index [BMI] 37.0-37.9, adult | CPT/HCPCS: Q3014 ==

== ENCOUNTER → 2021-01-02 07:21 | Outpatient (BNVA) | payer OTHER, SELFPAY | PROVIDERS: Visit Provider Surgery | DX: E66.9 Obesity, unspecified (principal); Z68.34 Body mass index [BMI] 34.0-34.9, adult | CPT/HCPCS: Q3014 ==

== ENCOUNTER → 2021-03-13 09:58 | Outpatient (BNVA) | payer OTHER, SELFPAY | PROVIDERS: Visit Provider Physician Assistant Surgical | DX: K21.9 Gastro-esophageal reflux disease without esophagitis (principal); L98.7 Excessive and redundant skin and subcutaneous tissue; Z68.31 Body mass index [BMI] 31.0-31.9, adult; Z98.84 Bariatric surgery status | CPT/HCPCS: 99212 ==

== ENCOUNTER 2021-04-19 09:43 | Outpatient (REF) | payer OTHER, SELFPAY ==
--- NOTE | ~2021-04-19 | FL_ITS ---
EXAMINATION: XR GI SERIES CLINICAL INFORMATION: Post gastric surgery for obesity. COMPARISON: 04/16/2020 TECHNIQUE: Air-contrast upper GI examination. FINDINGS: There is normal apposition of vocal cords while saying E. There is normal elevation of the soft palate while saying candy. Patient swallowed thin and thick barium without difficulty. There is no evidence of nasopharyngeal reflux or tracheal aspiration. No persistent stricture of the esophagus is identified. No mucosal abnormality is noted. There is some mild spontaneous gastroesophageal reflux elicited which cleared rapidly from the distal third of the esophagus. The stomach appeared unremarkable without postsurgical extravasation. No mucosal abnormality was appreciated. There is no delay in gastric emptying. The duodenal bulb and sweep appeared unremarkable. FLUOROSCOPY TIME: 1.6 minutes DOSE AREA PRODUCT: 9.249 Gy-cm2 (hagan-centimeter squared) FL/FL upper GI series IMPRESSION: Mild gastroesophageal reflux which cleared rapidly within the distal third of the esophagus. Otherwise unremarkable study.
== END 2021-04-19 09:44 | disposition home or self-care (01) ==
LOC: HO.XRAY 09:43
PROVIDERS: Visit Provider Physician Assistant Surgical
DX: K21.9 Gastro-esophageal reflux disease without esophagitis (principal)
CPT/HCPCS: 74240

== ENCOUNTER → 2021-05-13 11:30 | Outpatient (BNVA) | payer OTHER, SELFPAY | PROVIDERS: Visit Provider Physician Assistant Surgical | DX: E66.3 Overweight (principal); L98.7 Excessive and redundant skin and subcutaneous tissue; Z68.28 Body mass index [BMI] 28.0-28.9, adult | CPT/HCPCS: 99212 ==

== ENCOUNTER → 2021-06-07 15:49 | Outpatient (BNVA) | payer OTHER, SELFPAY | PROVIDERS: Visit Provider Dietitian, Registered | DX: E66.3 Overweight (principal); Z68.28 Body mass index [BMI] 28.0-28.9, adult | CPT/HCPCS: 97803 ==

== ENCOUNTER → 2021-06-17 08:07 | Outpatient (BNVA) | payer OTHER, SELFPAY | PROVIDERS: Visit Provider Physician Assistant Surgical | DX: E66.3 Overweight (principal); Z68.28 Body mass index [BMI] 28.0-28.9, adult | CPT/HCPCS: Q3014 ==

== ENCOUNTER → 2021-07-15 08:03 | Outpatient (BNVA) | payer OTHER, SELFPAY | PROVIDERS: Visit Provider Physician Assistant Surgical | DX: E66.3 Overweight (principal); Z68.28 Body mass index [BMI] 28.0-28.9, adult | CPT/HCPCS: Q3014 ==

== ENCOUNTER → 2021-09-09 08:19 | Outpatient (BNVA) | payer OTHER, SELFPAY | PROVIDERS: Visit Provider Physician Assistant Surgical | DX: Z13.89 Encounter for screening for other disorder (principal) ==

== ENCOUNTER 2021-09-11 10:31 | Outpatient (REF) | payer OTHER, SELFPAY ==
[2021-09-11 11:36] LABS: MANUAL DIFF FLAG NO
[2021-09-11 11:50] LABS: Basophils Percent Auto 0.5 % (0-2); Eosinophils Absolute Auto 0.2 X10*3/uL (0.0-0.4); Eosinophils Percent Auto 4.5 % (0-4); Hematocrit 42.1 % (37.0-47.0); Hemoglobin 13.6 g/dl (12.0-16.0); Lymphocytes Absolute Auto 1.8 X10*3/uL (1.2-4.9); Lymphocytes Percent Auto 42.7 % (20-40); Mean Corpuscular HGB Conc 32.3 g/dl (31.0-35.0); Mean Corpuscular Hemoglobin 27.1 pg (27.0-33.0); Mean Corpuscular Volume 83.9 fL (80.0-98.0); Mean Platelet Volume 9.4 fL (9.4-12.3); Monocytes Absolute Auto 0.3 X10*3/uL (0.1-1.2); Monocytes Percent Auto 7.6 % (2-11); Neutrophils Absolute Auto 1.9 x10*3/uL (2.0-8.3); Neutrophils Percent Auto 44.7 % (45-73); Platelet Count 268 X10*3/uL (160-400); Red Blood Count 5.02 X10*6/uL (4.20-5.50); Red Cell Distribution Width 14.8 % (11.0-16.0); White Blood Count 4.2 X10*3/uL (4.8-10.8)
[2021-09-11 12:07] LABS: Estimated Average Glucose 97 mg/dL
[2021-09-11 12:41] LABS: Alanine Aminotransferase 17 U/L (0-31); Alkaline Phosphatase 79 U/L (39-117); Anion Gap 12 (12-20); Aspartate Amino Transferase 17 U/L (5-31); Blood Urea Nitrogen 14 mg/dL (9-16); C Reactive Protein 0.16 mg/dL (< or = 0.50); Calcium 9.3 mg/dL (8.4-10.2); Carbon Dioxide 24 mmol/L (22-29); Chloride 104 mmol/L (96-108); Cholesterol 177 mg/dL; Estimated Glomerular Filt Rate > 60; Glucose Random 83 mg/dL (60-115); HDL Cholesterol 82 mg/dL; Iron 87 mcg/dL (30-160); LDL Cholesterol Calculated 85 mg/dl; Percent Iron Saturation 21 % (15-50); Potassium 4.3 mmol/L (3.3-5.1); Sodium 136 mmol/L (135-145); Total Iron Binding Capacity 424 mcg/dL (228-428); Total Protein 7.2 g/dL (6.5-8.0); Triglycerides 54 mg/dL; Unsaturated Iron Binding 337 ug/dL
[2021-09-11 13:03] LABS: TSH reflex Free T4 1.94 uIU/mL (0.32-4.0); Vitamin D 25-OH Total 33.7 ng/mL (>30)
[2021-09-11 13:26] LABS: Vitamin B12 737 pg/mL (200-900)
[2021-09-11 13:41] LABS: Ferritin 11 ng/mL (10-122)
[2021-09-12 12:51] LABS: Calcium (PTHI) 9.4 mg/dL (8.6-10.2); PTHI 48 pg/mL (16-77)
[2021-09-15 19:36] LABS: Zinc 63 mcg/dL (60-130)
[2021-09-17 11:16] LABS: Vitamin A 47 mcg/dL (38-98)
[2021-09-18 12:36] LABS: Vitamin B1 8 nmol/L (8-30)
== END 2021-09-11 10:32 | disposition home or self-care (01) ==
LOC: HO.LAB 10:31
PROVIDERS: Absent Provider Surgery; PCP Family Medicine; Visit Provider Physician Assistant Surgical
DX: E66.3 Overweight (principal); Z68.37 Body mass index [BMI] 37.0-37.9, adult
CPT/HCPCS: 36415; 80053; 80061; 82306; 82607; 82728; 83036; 83540; 83970; 84425; 84443; 84590; 84630; 85025; 86140; 99212

== ENCOUNTER → 2022-03-28 11:13 | Outpatient (BNVA) | payer OTHER, SELFPAY | PROVIDERS: Visit Provider Physician Assistant Surgical | DX: E66.3 Overweight (principal); Z68.28 Body mass index [BMI] 28.0-28.9, adult; Z98.84 Bariatric surgery status | CPT/HCPCS: 99212 ==

== ENCOUNTER → 2022-06-18 09:27 | Outpatient (BNVA) | payer OTHER, SELFPAY | PROVIDERS: Visit Provider Physician Assistant Surgical | DX: E66.3 Overweight (principal); Z68.28 Body mass index [BMI] 28.0-28.9, adult; Z98.84 Bariatric surgery status | CPT/HCPCS: Q3014 ==

== ENCOUNTER 2022-07-02 09:22 | Outpatient (REF) | payer OTHER, SELFPAY ==
[2022-07-02 09:36] LABS: MANUAL DIFF FLAG NO
[2022-07-02 09:44] LABS: Basophils Percent Auto 0.5 % (0-2); Eosinophils Absolute Auto 0.2 X10*3/uL (0.0-0.4); Eosinophils Percent Auto 3.7 % (0-4); Hematocrit 38.3 % (37.0-47.0); Hemoglobin 12.3 g/dl (12.0-16.0); Imm Gran Abs Auto 0.01 X10*3/uL (0.00-0.03); Imm Gran Pct Auto 0.2 % (0.0-0.4); Lymphocytes Absolute Auto 1.7 X10*3/uL (1.2-4.9); Lymphocytes Percent Auto 38.7 % (20-40); Mean Corpuscular HGB Conc 32.1 g/dl (31.0-35.0); Mean Corpuscular Hemoglobin 25.1 pg (27.0-33.0); Mean Platelet Volume 9.4 fL (9.4-12.3); Monocytes Absolute Auto 0.3 X10*3/uL (0.1-1.2); Monocytes Percent Auto 6.5 % (2-11); Neutrophils Absolute Auto 2.2 x10*3/uL (2.0-8.3); Neutrophils Percent Auto 50.4 % (45-73); Platelet Count 343 X10*3/uL (160-400); Red Blood Count 4.91 X10*6/uL (4.20-5.50); Red Cell Distribution Width 15.3 % (11.0-16.0); White Blood Count 4.3 X10*3/uL (4.8-10.8)
[2022-07-02 10:01] LABS: Estimated Average Glucose 97 mg/dL
[2022-07-02 10:21] LABS: Alanine Aminotransferase 20 U/L (0-31); Albumin Level 4.1 g/dL (3.5-5.0); Alkaline Phosphatase 76 U/L (39-117); Anion Gap 9 (12-20); Aspartate Amino Transferase 24 U/L (5-31); Bilirubin Total 0.6 mg/dL (0.0-1.0); Blood Urea Nitrogen 7 mg/dL (9-16); C Reactive Protein 0.65 mg/dL (< or = 0.50); Carbon Dioxide 27 mmol/L (22-29); Chloride 106 mmol/L (96-108); Cholesterol 136 mg/dL; Estimated Glomerular Filt Rate > 60; Glucose Random 86 mg/dL (60-115); HDL Cholesterol 72 mg/dL; Iron 26 mcg/dL (30-160); LDL Cholesterol Calculated 53 mg/dl; Percent Iron Saturation 6 % (15-50); Potassium 3.9 mmol/L (3.3-5.1); Sodium 138 mmol/L (135-145); Total Iron Binding Capacity 408 mcg/dL (228-428); Total Protein 7.1 g/dL (6.5-8.0); Triglycerides 55 mg/dL; Unsaturated Iron Binding 382 ug/dL
[2022-07-02 10:33] LABS: Ferritin 12 ng/mL (10-122); Insulin 6 uU/mL (2-29); Vitamin D 25-OH Total 31.6 ng/mL (>30)
[2022-07-02 10:43] LABS: Folate 10.3 ng/mL (> or = 4.0); Vitamin B12 670 pg/mL (200-900)
[2022-07-03 14:13] LABS: Calcium (PTHI) 9.3 mg/dL (8.6-10.2); PTHI 41 pg/mL (16-77)
[2022-07-06 10:19] LABS: Vitamin A 32 mcg/dL (38-98); Zinc 72 mcg/dL (60-130)
[2022-07-07 08:13] LABS: Vitamin B1 8 nmol/L (8-30)
== END 2022-07-02 09:23 | disposition home or self-care (01) ==
LOC: HO.LAB 09:22
PROVIDERS: Visit Provider Physician Assistant Surgical
DX: K91.2 Postsurgical malabsorption, not elsewhere classified (principal); Z98.84 Bariatric surgery status
CPT/HCPCS: 36415; 80053; 80061; 82306; 82607; 82728; 82746; 83036; 83525; 83540; 83970; 84425; 84443; 84590; 84630; 85025; 86140

== ENCOUNTER 2023-03-26 13:29 | Outpatient (AMB) | payer OTHER, MEDICARE, SELFPAY ==
--- NOTE | 2023-03-26 12:57 | MHC.OFFVISWM ---
Intake VS Expanded 03/26/23 13:08 Height 5 ft Weight 160 lb BMI 31.2 Intake Visit Reasons: Telehealth PO LSG 06/17/2020 Allergies animal dander Allergy (Mild, Verified 03/28/22 11:34) Sneezing Medication List - Last Reconciled 03/26/23 by TRISH Kumari bupropion HCl (Wellbutrin XL) 150 mg PO QAM [celebrate Mp+D PO BID] clotrimazole 1% 1 appl topical BID fluoxetine (Prozac) 80 mg PO QAM quetiapine (Seroquel) 12.5 mg PO BEDTIME vitamin A palmitate 10,000 units PO DAILY HPI HPI Comments History of Present Illness Details This?is a?32?yo female who is s/p LSG 06/17/2020. Presents for 2 year 9 month post op visit. Weight at last visit on 06/18/2022 was 146.8 pounds with a BMI of 28.6, weight today is 160 pounds, representing a 13.2 pound weight loss with a BMI today of 31.2.? Pt reports a period of time recently of experiencing stomach pain and some diarrhea. At the same time had started doing increased core work. Admits to some nausea occasionally. 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 Gets rashes at both locations, moisture gets trapped under skin fold of abdomen and causes an unpleasant odor. Excess skin of arms makes exercise difficult and causes discomfort due to heaviness of extra skin. Has tried clotrimazole for rashes but this has not completely resolved the issues. [facility] Medical History Anemia Anxiety BMI 37.0-37.9, adult Depression GERD (gastroesophageal reflux disease) Hx of migraine headaches Morbid obesity Obesity ORVILLE (obstructive sleep apnea) Rash and nonspecific skin eruption Surgical History History of esophagogastroduodenoscopy (EGD) History of sleeve gastrectomy S/P tonsillectomy Family History Father Blood clot in vein Heart disease Mother No problems noted. Brother No problems noted. Social History Household Members: None Are you a primary gericare aide teacher to a significant other at home: No Do you presently have visiting nurse or other home services: No Alcohol intake: current Alcohol intake frequency: a few times a month Patient Tobacco Use Status: Never used Tobacco Substance Use Type: Marijuana Advance Directives Date on File: 04/16/20 service: No Current occupational status: disabled Assessment & Plan Assessment & Plan (1) S/P laparoscopic sleeve gastrectomy: Code(s): Z98.84 - Bariatric surgery status (2) Obesity: Code(s): E66.9 - Obesity, unspecified Plan Goal of 65g protein per day; pt has increased protein shakes and will also increase exercise as planned. Continue clotrimazole for rashes. Discussed skin removal surgery with timeline of possibly next spring. Pt will work on continued weight loss in the meantime. Pt has been inconsistent with taking vitamins, wants to recheck levels. RTC 3 months for annual and can perform exam of excess skin. Patient is obese and is not considered stable at this time. I spent a total of 30 minutes reviewing/updating records, examining the patient and counseling the patient on weight management as detailed above. Orders: Orders Vitamin B1 Today Z98.84 - Bariatric surgery status PTHI Today Z98.84 - Bariatric surgery status Vitamin D 25-OH Total Today Z98.84 - Bariatric surgery status Vitamin B12 and Folate Today Z98.84 - Bariatric surgery status Vitamin A Today Z98.84 - Bariatric surgery status Zinc Today Z98.84 - Bariatric surgery status Telehealth Telehealth Location of provider rendering services: practice address Location of patient: address on file Patient Identification confirmed using: Name, : Yes Telehealth method: video Patient verbally consented to treatment: Yes Patient verbally consented to billing insurance company: Yes Patient informed of any privacy concerns related to visit: Yes Coding Level of Care Code Tele Est Pt Level 4 (08865) Diagnoses S/P laparoscopic sleeve gastrectomy Z98.84 Obesity E66.9
[2023-03-26 13:08] VITALS: BMI 31.2
== END 2023-03-26 13:31 | disposition home or self-care (01) ==
LOC: HO.HBS 13:29
PROVIDERS: Visit Provider Physician Assistant Surgical
DX: E66.9 Obesity, unspecified (principal); Z68.31 Body mass index [BMI] 31.0-31.9, adult; Z90.3 Acquired absence of stomach [part of]; Z98.84 Bariatric surgery status
CPT/HCPCS: 99214

== ENCOUNTER → 2023-03-26 13:29 | Outpatient (BNVA) | payer MEDICARE, OTHER, SELFPAY | PROVIDERS: Visit Provider Physician Assistant Surgical | DX: Z98.84 Bariatric surgery status (principal); E66.9 Obesity, unspecified ==

== ENCOUNTER 2023-06-16 10:08 | Outpatient (AMB) | payer OTHER, MEDICARE, SELFPAY ==
--- NOTE | 2023-06-16 10:12 | A.OFFVIS_ITS ---
Intake VS Expanded 06/16/23 10:20 BP 121/69 Blood Pressure Location Rt brachial Blood Pressure Position Sitting Pulse 87 Pulse Source Pulse Oximeter Temp 97.8 F Temperature Source Tympanic Pulse Oximetry 97 Oxygen Delivery Method Room Air Height 5 ft Weight 157 lb BMI 30.7 Body Fat % 35.3 Body Fat Mass 55.4 Fat Free Mass 101.6 Visceral Fat Rating 6.0 Body Water % 46.5 Body Water Mass 73.0 Muscle Mass/Score 96.6 Basal Metabolic Rate/Score 1,413 Intake Visit Reasons: (OV) PO LSG 06/17/2020 Allergies animal dander Allergy (Mild, Verified 06/16/23 10:23) Sneezing Medication List - Last Reconciled 06/16/23 by TRISH Kumari bupropion HCl (Wellbutrin XL) 150 mg PO QAM [celebrate Mp+D PO BID] clotrimazole 1% 1 appl topical BID fluoxetine (Prozac) 80 mg PO QAM quetiapine (Seroquel) 12.5 mg PO BEDTIME vitamin A palmitate 10,000 units PO DAILY HPI HPI Comments History of Present Illness Details This?is a?32?yo female who is s/p LSG 06/17/2020. Presents for 3 year post op visit. Weight at last visit on 03/26/2022 was 160 pounds with a BMI of 31.2, weight today is 157 pounds, representing a 3 pound weight loss with a BMI today of 30.7.? No complaints of nausea, emesis, abdominal pain or reflux, or constipation. Present meal plan includes: Premier shake for breakfast, American yogurt for lunch, 3oz protein and 3oz veg for dinner often skips breakfast notes she wants to decrease her alcohol intake, which she thinks will help her make better choices; declines help to cut back on drinking at this time Exercise: 3x/week program or treadmill- wants to g et back to this, has exercise equipment in her apt building Has excess skin of upper arms and abdomen and continues to have issues with both areas. Gets rashes at both locations, moisture gets trapped under skin fold of abdomen and causes an unpleasant odor. Excess skin of arms makes exercise difficult and causes discomfort due to heaviness of extra skin. Has tried clotrimazole for rashes but this has not completely resolved the issues. Did the patient ever have any of these conditions and are they resolved or still being treated? GERD: rimproved ORVILLE:? does not wear CPAP DM:? never HTN:? never Hyperlipidemia:?never Post op complications:? none [facility] Medical History Anemia Anxiety BMI 37.0-37.9, adult Depression GERD (gastroesophageal reflux disease) Hx of migraine headaches Morbid obesity Obesity ORVILLE (obstructive sleep apnea) Rash and nonspecific skin eruption Surgical History History of esophagogastroduodenoscopy (EGD) History of sleeve gastrectomy S/P tonsillectomy Family History Father Blood clot in vein Heart disease Mother No problems noted. Brother No problems noted. Social History Household Members: None Are you a primary career manager to a significant other at home: No Do you presently have visiting nurse or other home services: No Alcohol intake: current Alcohol intake frequency: a few times a month Comment: aware of trip hazard Patient Tobacco Use Status: Never used Tobacco Substance Use Type: Marijuana Advance Directives Date on File: 04/16/20 service: No Current occupational status: disabled Assessment & Plan Assessment & Plan (1) Obesity: Code(s): E66.9 - Obesity, unspecified (2) S/P laparoscopic sleeve gastrectomy: Code(s): Z98.84 - Bariatric surgery status (3) Excess skin: Code(s): L98.7 - Excessive and redundant skin and subcutaneous tissue Plan Pt wants to transition away from dairy. Recommended protein water in AM for 20g protein, or can use powder she has at home and mix with nondairy milk like almond milk or water. Wants to have soup at lunch; recommended making sure it had 2oz shredded chicken. Continue 6 forks/6 forks for dinner. Labs ordered, pt did not have vitamin levels drawn after last visit. Continue clotrimazole ointment for rashes of excess skin. Discussed goal weight <145 for skin removal surgery. RTC 6 weeks for accountability. Patient is obese and is not considered stable at this time. I spent a total of 30 minutes reviewing/updating records, examining the patient and counseling the patient on weight management as detailed above. Orders: Orders Complete Blood Count Auto Diff Today Z98.84 - Bariatric surgery status Comprehensive Met. Panel Today Z98.84 - Bariatric surgery status TSH reflex Free T4 Today Z98.84 - Bariatric surgery status Ferritin Today Z98.84 - Bariatric surgery status IRON PROFILE Today Z98.84 - Bariatric surgery status Insulin Today Z98.84 - Bariatric surgery status C Reactive Protein Today Z98.84 - Bariatric surgery status Hemoglobin A1c Today Z98.84 - Bariatric surgery status Lipid Panel Today Z98.84 - Bariatric surgery status Coding Level of Care Code Est Pt Level 4 (74212) Diagnoses Obesity E66.9 S/P laparoscopic sleeve gastrectomy Z98.84 Excess skin L98.7
[2023-06-16 10:20] VITALS: BP 121/69; PULSE 87; TEMP 36.6; O2SAT 97; BMI 30.7
== END 2023-06-16 10:45 | disposition home or self-care (01) ==
PROVIDERS: Visit Provider Physician Assistant Surgical
DX: E66.9 Obesity, unspecified (principal); Z68.30 Body mass index [BMI] 30.0-30.9, adult; Z90.3 Acquired absence of stomach [part of]; L98.7 Excessive and redundant skin and subcutaneous tissue; Z98.84 Bariatric surgery status
CPT/HCPCS: 99214

== ENCOUNTER → 2023-06-16 10:08 | Outpatient (BNVA) | payer OTHER, MEDICARE, SELFPAY | PROVIDERS: Visit Provider Physician Assistant Surgical | DX: E66.9 Obesity, unspecified (principal); L98.7 Excessive and redundant skin and subcutaneous tissue; Z98.84 Bariatric surgery status; Z68.30 Body mass index [BMI] 30.0-30.9, adult | CPT/HCPCS: 99212 ==

== ENCOUNTER 2023-08-04 13:26 | Outpatient (AMB) | payer MEDICARE, SELFPAY ==
--- NOTE | 2023-08-04 13:02 | A.OFFVIS_ITS ---
Intake Intake Visit Reasons: (TV) PO LSG 06/17/2020 Allergies animal dander Allergy (Mild, Verified 06/16/23 10:23) Sneezing Medication List - Last Reconciled 08/04/23 by TRISH Kumari bupropion HCl (Wellbutrin XL) 150 mg PO QAM [celebrate Mp+D PO BID] clotrimazole 1% 1 appl topical BID fluoxetine (Prozac) 80 mg PO QAM quetiapine (Seroquel) 12.5 mg PO BEDTIME vitamin A palmitate 10,000 units PO DAILY HPI HPI Comments History of Present Illness Details This?is a?32?yo female who is s/p LSG 06/17/2020. Weight at last visit on 06/16/2023 was 157 pounds with a BMI of 30.7, weight today is same.? No complaints of nausea, emesis, abdominal pain or reflux, or constipation. Reports holidays were rough, getting back on track. Present meal plan includes: Protein water or nondairy shake for breakfast, British yogurt for lunch or soup with 2oz meat, 3oz protein and 3oz veg for dinner states she has cut back on alcohol, but still will have some drinks struggles with evening snacking Exercise: 3x/week program or treadmill- wants to b e more consistent with this, has exercise equipment in her apt building Has excess skin of upper arms and abdomen and continues to have issues with both areas. Gets rashes at both locations, moisture gets trapped under skin fold of abdomen and causes an unpleasant odor. Excess skin of arms makes exercise difficult and causes discomfort due to heaviness of extra skin. Has tried clotrimazole for rashes but this has not completely resolved the issues. [facility] Medical History Anemia Anxiety BMI 37.0-37.9, adult Depression GERD (gastroesophageal reflux disease) Hx of migraine headaches Morbid obesity Obesity [place] (obstructive sleep apnea) Rash and nonspecific skin eruption Surgical History History of esophagogastroduodenoscopy (EGD) History of sleeve gastrectomy S/P tonsillectomy Family History Father Blood clot in vein Heart disease Mother No problems noted. Brother No problems noted. Social History Household Members: None Are you a primary customer care consultant to a significant other at home: No Do you presently have visiting nurse or other home services: No Alcohol intake: current Alcohol intake frequency: a few times a month Comment: aware of trip hazard Patient Tobacco Use Status: Never used Tobacco Substance Use Type: Marijuana Advance Directives Date on File: 04/16/20 service: No Current occupational status: disabled Assessment & Plan Assessment & Plan (1) Obesity: Code(s): E66.9 - Obesity, unspecified (2) S/P laparoscopic sleeve gastrectomy: Code(s): Z98.84 - Bariatric surgery status (3) Excess skin: Code(s): L98.7 - Excessive and redundant skin and subcutaneous tissue Plan Adjust plan to allow pt to have a snack after dinner: Breakfast- Premier protein water or Premier shake powder with 1 scoop Lunch- 2oz meat in homemade soup Dinner- 2oz protein, 2-3oz veg Snack- British yogurt Encouraged resuming exercise and decreasing alcohol to help with weight loss. Reminded pt to have labs drawn; she plans to go next Thursday. Continue clotrimazole ointment for rashes of excess skin. RTC 6 weeks for accountability. Patient is obese and is not considered stable at this time. I spent a total of 30 minutes reviewing/updating records, examining the patient and counseling the patient on weight management as detailed above. Telehealth Telehealth Location of provider rendering services: other Location of patient: address on file Patient Identification confirmed using: Name, : Yes Telehealth method: voice only Patient verbally consented to treatment: Yes Patient verbally consented to billing insurance company: Yes Patient informed of any privacy concerns related to visit: Yes Minutes spent on Phone/Video with Pt.: 15 Coding Level of Care Code Tele Est Pt Level 4 (09127) Diagnoses Obesity E66.9 S/P laparoscopic sleeve gastrectomy Z98.84 Excess skin L98.7
== END 2023-08-04 13:27 | disposition home or self-care (01) ==
LOC: HO.HBS 13:26
PROVIDERS: Visit Provider Physician Assistant Surgical
DX: E66.9 Obesity, unspecified (principal); Z68.30 Body mass index [BMI] 30.0-30.9, adult; Z98.84 Bariatric surgery status; L98.7 Excessive and redundant skin and subcutaneous tissue
CPT/HCPCS: 99442

== ENCOUNTER → 2023-08-04 13:26 | Outpatient (BNVA) | payer MEDICARE, SELFPAY | PROVIDERS: Visit Provider Physician Assistant Surgical ==

== ENCOUNTER 2023-11-27 08:38 | Outpatient (REF) | payer MEDICARE, SELFPAY ==
[2023-11-27 09:01] LABS: MANUAL DIFF FLAG NO
[2023-11-27 09:24] LABS: Basophils Percent Auto 0.7 % (0-2); Eosinophils Absolute Auto 0.1 X10*3/uL (0.0-0.4); Eosinophils Percent Auto 3.2 % (0-4); Hematocrit 36.6 % (37.0-47.0); Hemoglobin 11.8 g/dl (12.0-16.0); Imm Gran Abs Auto 0.01 X10*3/uL (0.00-0.03); Imm Gran Pct Auto 0.2 % (0.0-0.4); Lymphocytes Absolute Auto 1.8 X10*3/uL (1.2-4.9); Lymphocytes Percent Auto 41.6 % (20-40); Mean Corpuscular HGB Conc 32.2 g/dl (31.0-35.0); Mean Corpuscular Hemoglobin 22.4 pg (27.0-33.0); Mean Corpuscular Volume 69.6 fL (80.0-98.0); Mean Platelet Volume 9.2 fL (9.4-12.3); Monocytes Absolute Auto 0.3 X10*3/uL (0.1-1.2); Monocytes Percent Auto 7.4 % (2-11); Neutrophils Percent Auto 46.9 % (45-73); Platelet Count 354 X10*3/uL (160-400); Red Blood Count 5.26 X10*6/uL (4.20-5.50); Red Cell Distribution Width 18.3 % (11.0-16.0); White Blood Count 4.4 X10*3/uL (4.8-10.8)
[2023-11-27 09:53] LABS: Alanine Aminotransferase 13 U/L (0-31); Albumin Level 4.2 g/dL (3.5-5.0); Alkaline Phosphatase 69 U/L (39-117); Anion Gap 11 (12-20); Aspartate Amino Transferase 18 U/L (5-31); Bilirubin Total 0.7 mg/dL (0.0-1.0); Blood Urea Nitrogen 11 mg/dL (9-16); C Reactive Protein 0.13 mg/dL (< or = 0.50); Carbon Dioxide 22 mmol/L (22-29); Chloride 108 mmol/L (96-108); Cholesterol 191 mg/dL (<200); Estimated Glomerular Filt Rate > 60; Glucose Random 84 mg/dL (60-115); HDL Cholesterol 94 mg/dL (>40); Iron 64 mcg/dL (30-160); LDL Cholesterol Calculated 85 mg/dL (<100); Percent Iron Saturation 14 % (15-50); Sodium 137 mmol/L (135-145); Total Iron Binding Capacity 465 mcg/dL (228-428); Total Protein 7.7 g/dL (6.5-8.0); Triglycerides 61 mg/dL (<150); Unsaturated Iron Binding 401 ug/dL
[2023-11-27 09:57] LABS: Parathyroid Hormone Intact 117.1 pg/mL (8.7-77.1)
[2023-11-27 10:01] LABS: Estimated Average Glucose 103 mg/dL; Hemoglobin A1c % 5.2 % (<6.0)
[2023-11-27 10:20] LABS: Ferritin 7 ng/mL (10-122); TSH reflex Free T4 2.08 uIU/mL (0.32-4.0); Vitamin D 25-OH Total 30.3 ng/mL (>30)
[2023-11-27 10:37] LABS: Insulin 5 uU/mL (2-29)
[2023-11-27 10:45] LABS: Folate 12.4 ng/mL (> or = 4.0); Vitamin B12 516 pg/mL (200-900)
[2023-12-01 12:18] LABS: Zinc 82 mcg/dL (60-130)
[2023-12-02 17:28] LABS: Vitamin A 45 mcg/dL (38-98)
[2023-12-03 15:28] LABS: Vitamin B1 18 nmol/L (8-30)
== END 2023-11-27 08:39 | disposition home or self-care (01) ==
LOC: HO.LAB 08:38
PROVIDERS: Visit Provider Physician Assistant Surgical
DX: Z98.84 Bariatric surgery status (principal)
CPT/HCPCS: 36415; 80053; 80061; 82306; 82607; 82728; 82746; 83036; 83525; 83540; 83970; 84425; 84443; 84590; 84630; 85025; 86140

== ENCOUNTER 2023-12-03 11:44 | Outpatient (AMB) | payer MEDICARE, SELFPAY ==
--- NOTE | 2023-12-03 11:41 | A.OFFVIS_ITS ---
VS Expanded 12/03/23 11:53 Height 5 ft Weight 170 lb BMI 33.2 Intake Visit Reasons: TV PO LSG 06/17/2020 Allergies animal dander Allergy (Mild, Verified 06/16/23 10:23) Sneezing Medication List - Last Reconciled 12/03/23 by TRISH Kumari bupropion HCl XL (Wellbutrin XL) 150 mg PO QAM [celebrate Mp+D PO BID] cholecalciferol (vitamin D3) 125 mcg PO DAILY clotrimazole 1% 1 appl topical BID fluoxetine (Prozac) 80 mg PO QAM iron,carbonyl-vitamin C 65 mg iron- 125 mg (Vitron-C) 1 tab PO BEDTIME quetiapine (Seroquel) 12.5 mg PO BEDTIME vitamin A palmitate 10,000 units PO DAILY HPI Comments Details: This?is a?32?yo female who is s/p LSG 06/17/2020. Weight at last visit on 08/04/2023 was 157 pounds with a BMI of 30.7, weight today is 170 pounds, representing a 13 pound weight gain with a BMI today of 33.2.? No complaints of nausea, emesis, abdominal pain or reflux, or constipation. Present meal plan includes: Breakfast- Premier protein water or Premier shake powder with 1 scoop Lunch- 2oz meat in homemade soup Dinner- 2oz protein, 2-3oz veg Snack- Faroese yogurt -has not really followed this plan, trying to get back to tracking meals Exercise routine includes: I haven't really been exercising - wants to get back to gym Has excess skin of upper arms and abdomen and continues to have issues with both areas. Gets rashes at both locations, moisture gets trapped under skin fold of abdomen and causes an unpleasant odor. Excess skin of arms makes exercise difficult and causes discomfort due to heaviness of extra skin. Has tried clotrimazole for rashes but this has not completely resolved the issues. [facility] Medical History Anemia Anxiety BMI 37.0-37.9, adult Depression GERD (gastroesophageal reflux disease) Hx of migraine headaches Morbid obesity Obesity [place] (obstructive sleep apnea) Rash and nonspecific skin eruption Surgical History History of esophagogastroduodenoscopy (EGD) History of sleeve gastrectomy S/P tonsillectomy Family History Father Blood clot in vein Heart disease Mother No problems noted. Brother No problems noted. Social History Household Members: None Are you a primary post acute care nurse practitioner to a significant other at home: No Do you presently have visiting nurse or other home services: No Alcohol intake: current Alcohol intake frequency: a few times a month Comment: aware of trip hazard Patient Tobacco Use Status: Never used Tobacco Substance Use Type: Marijuana Advance Directives Date on File: 04/16/20 service: No Current occupational status: disabled Physical Exam Vital Signs: BMI result Body Mass Index 33.2 Telehealth Telehealth Minutes spent on Phone/Video with Pt.: 20 Assessment & Plan Assessment & Plan (1) Excess skin: Code(s): L98.7 - Excessive and redundant skin and subcutaneous tissue Category: Medical (2) Obesity: Code(s): E66.9 - Obesity, unspecified Category: Medical (3) S/P laparoscopic sleeve gastrectomy: Code(s): Z98.84 - Bariatric surgery status Category: Medical Plan Add iron, vit D- PTH elevated, will recheck in 3mo to ensure improvement. Pt strugging to get enough protein, snacking. Goal 70g protein perday, encouraged her to reframe her mindset and work on meeting that goal of protein intake rather than thinking about restriction/limitation of foods. Sent healthy foods reference sheet via text. Encouraged resuming exercise, discussed the importance for penitentiary weight management. Continue clotrimazole for rashes of excess skin. RTC 3mo, encouraged pt to reach out via text between appts with questions. Patient is obese and is not considered stable at this time. I spent a total of 30 minutes reviewing/updating records, examining the patient and counseling the patient on weight management as detailed above. Medications: New cholecalciferol (vitamin D3) 125 mcg PO DAILY 90 caps 3RF iron,carbonyl-vitamin C 65 mg iron- 125 mg (Vitron-C) 1 tab PO BEDTIME 90 tabs 3RF
[2023-12-03 11:53] VITALS: BMI 33.2
== END 2023-12-03 12:04 | disposition home or self-care (01) ==
LOC: HO.HBS 11:44
PROVIDERS: PCP Nurse Practitioner Family; Visit Provider Physician Assistant Surgical
DX: L98.7 Excessive and redundant skin and subcutaneous tissue (principal); E66.9 Obesity, unspecified; Z68.33 Body mass index [BMI] 33.0-33.9, adult; Z98.84 Bariatric surgery status
CPT/HCPCS: 99214

== ENCOUNTER → 2023-12-03 11:44 | Outpatient (BNVA) | payer MEDICARE, SELFPAY | PROVIDERS: PCP Nurse Practitioner Family; Visit Provider Physician Assistant Surgical ==

== ENCOUNTER 2024-03-07 10:10 | Outpatient (REF) | payer OTHER, SELFPAY ==
[2024-03-07 12:36] LABS: Parathyroid Hormone Intact 71.4 pg/mL (8.7-77.1)
[2024-03-07 12:53] LABS: Vitamin D 25-OH Total 34.5 ng/mL (>30)
== END 2024-03-07 10:11 | disposition home or self-care (01) ==
LOC: HO.LAB 10:10
PROVIDERS: PCP Nurse Practitioner Family; Visit Provider Physician Assistant Surgical
DX: Z98.84 Bariatric surgery status (principal); E66.9 Obesity, unspecified
CPT/HCPCS: 36415; 82306; 83970; 99212

== ENCOUNTER 2024-03-07 10:10 | Outpatient (AMB) | payer MEDICARE, SELFPAY ==
--- NOTE | 2024-03-07 10:17 | MHC.OFFVISWM ---
VS Expanded 03/07/24 10:30 BP 119/64 Blood Pressure Location Rt brachial Blood Pressure Position Sitting Pulse 90 Pulse Source Pulse Oximeter Temp 97.4 F Pulse Oximetry 95 Oxygen Delivery Method Room Air Height 5 ft Weight 176 lb 6.4 oz BMI 34.4 Body Fat % 40.8 Body Fat Mass 71.8 Fat Free Mass 104.4 Visceral Fat Rating 8.0 Body Water % 42.5 Body Water Mass 75.0 Muscle Mass/Score 99.2 Basal Metabolic Rate/Score 1,473 Intake Visit Reasons: OV PO LSG 06/17/20 Allergies animal dander Allergy (Mild, Verified 03/07/24 10:34) Sneezing Medication List - Last Reconciled 03/07/24 by TRISH Kumari bupropion HCl XL (Wellbutrin XL) 150 mg PO QAM [celebrate Mp+D PO BID] cholecalciferol (vitamin D3) 125 mcg PO DAILY clotrimazole 1% 1 appl topical BID fluoxetine (Prozac) 80 mg PO QAM iron,carbonyl-vitamin C 65 mg iron- 125 mg (Vitron-C) 1 tab PO BEDTIME quetiapine (Seroquel) 12.5 mg PO BEDTIME HPI Comments Details: This?is a?33?yo female who is s/p LSG 06/17/2020. Presents for 3 year 9 month post op visit. Weight at last visit on 12/03/2023 was 170 pounds with a BMI of 33.2, weight today is 176.4 pounds, representing a 6.4 pound weight gain with a BMI today of 34.4.? No complaints of nausea, emesis, abdominal pain or reflux, or constipation. ? taking iron, vit D Reports feeling out of control , had increased her alcohol use after of her aunt last January. This also made her food choices more difficult, was eating the wrong things. She has not had a drink in about a week and reports she feels that she can cut back. Going to [place] in a few weeks with family. Had been on spironolactone for PCOS but stopped this as she didn't feel well on it. Present meal plan includes: Breakfast- Premier protein water or Premier shake powder with 1 scoop Lunch- 2oz meat in homemade soup Dinner- 2oz protein, 2-3oz veg Snack- Romansh yogurt I have not been super consistent Exercise routine includes: I haven't really been exercising - wants to get back to gym Has excess skin of upper arms and abdomen and continues to have issues with both areas. Gets rashes at both locations, moisture gets trapped under skin fold of abdomen and causes an unpleasant odor. Excess skin of arms makes exercise difficult and causes discomfort due to heaviness of extra skin. Has tried clotrimazole for rashes but this has not completely resolved the issues. [facility] Medical History Anemia Anxiety BMI 37.0-37.9, adult Depression GERD (gastroesophageal reflux disease) Hx of migraine headaches Morbid obesity Obesity [place] (obstructive sleep apnea) Rash and nonspecific skin eruption Surgical History History of esophagogastroduodenoscopy (EGD) History of sleeve gastrectomy S/P tonsillectomy Family History Father Blood clot in vein Heart disease Mother No problems noted. Brother No problems noted. Social History Household Members: None Are you a primary home health caregiver to a significant other at home: No Do you presently have visiting nurse or other home services: No Alcohol intake: current Alcohol intake frequency: a few times a month Comment: aware of trip hazard Patient Tobacco Use Status: Never used Tobacco Substance Use Type: Marijuana Advance Directives Date on File: 04/16/20 service: No Current occupational status: disabled Assessment & Plan Assessment & Plan (1) S/P laparoscopic sleeve gastrectomy: Code(s): Z98.84 - Bariatric surgery status Category: Medical (2) Obesity: Code(s): E66.9 - Obesity, unspecified Category: Medical Plan Will set up appt with Margret as pt would like some coping strategies for dealing with stress. She does not feel she needs help with abstinence from alcohol at this time, feels she can stop on her own. She plans to resume plan strictly once she returns from [facility] in early March. Will recheck vit D/PTH today. RTC 4 months. I spent a total of 30 minutes reviewing/updating records, examining the patient and counseling the patient on weight management as detailed above. Orders: Orders Vitamin D 25-OH Total Today Z98.84 - Bariatric surgery status Parathyroid Hormone Intact Today Z98.84 - Bariatric surgery status
[2024-03-07 10:30] VITALS: BP 119/64; PULSE 90; TEMP 36.3; O2SAT 95; BMI 34.4
== END 2024-03-07 10:58 | disposition home or self-care (01) ==
PROVIDERS: PCP Nurse Practitioner Family; Visit Provider Physician Assistant Surgical
DX: E66.9 Obesity, unspecified (principal); Z68.34 Body mass index [BMI] 34.0-34.9, adult; Z90.3 Acquired absence of stomach [part of]; Z98.84 Bariatric surgery status
CPT/HCPCS: 99214

== ENCOUNTER 2024-03-14 10:42 | Outpatient (AMB) | payer OTHER, SELFPAY ==
--- NOTE | 2024-03-14 10:45 | A.OFFPC_ITS ---
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 Intake Note: new patient is to establish care Allergies animal dander Allergy (Mild, Verified 03/14/24 11:21) Sneezing Medication List - Last Reconciled 03/14/24 by NILO LeyvaP- bupropion HCl XL (Wellbutrin XL) 150 mg PO QAM cholecalciferol (vitamin D3) 125 mcg PO DAILY fluoxetine (Prozac) 80 mg (2 x 40 mg) PO QAM iron,carbonyl-vitamin C 65 mg iron- 125 mg (Vitron-C) 1 tab PO BEDTIME mecobalamin (vitamin B12) mcg PO multivitamin 1 tab PO DAILY quetiapine (Seroquel) 25 mg PO BEDTIME Tobacco use date assessed: 03/14/24 Dental Screening Dental Screen Date: 03/14/24 Did you have a dental visit in the last 12 months?: Yes Did you have a dental problem in the last 6 months where you did not have access to dental care?: No Was dental information given to patient?: Patient has dentist HPI HPI Comments History of Present Illness Details 33-year-old female with anemia, generali zed anxiety disorder, major d epressive disorder, GERD, migraine headaches, PCOS, obesity, Mild hepatic steatosis, at risk for secondary hypercoagulation, Alchohol Use Disorder Status post tonsillectomy, S/P laparoscopic sleeve gastrectomy 2019, right middle finger surgery in childhood 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 PAP UTD ? Tdap 02/15/19 Specialists: Bariatrics [facility] Counselor Labs 10/2023 reviewed, 03/07/24 PTH and Vit D WNL Here today as a new patient, [email or web address] care & for a CPE Endometrial bx @ [facility], dx with PCOS. Meds made her feel lousy. Does not want OCP given the risk for blood clots [see below] Gaining wt since surgery. Admits poor dietary habits. Active w/ wt mgmt & their counseling support. Was active w/ [facility] for meds and counselor. Insurance change & cannot follow there anymore. She is currently on meds, taking as directed. Interested in referral for counseling and getting off her meds if able. Etoh - drinking more since of her aunt, every day, excessive amounts. this happened after of dad, too. tries to limit etoh in the house and control her drinking socially. Has occasional bruising that occurs from time to time this makes her nervous. Paternal Aunt of breast ca age 67; hx of hypercoaguable disorder - Dad, paternal aunt and paternal grandmother with some genetic mutation ... unsure what but she is negative for this gene Maternal aunt w/ breast ca - still alive Worries about her risk for cancer. GI - constipation mixed w/ diarrhea, ongoing, worse since surgery in 2019 Optho wears glasses, c/o Dry eyes Skin: has a new mole right flank Labs 10/2023 reviewed, 03/07/24 PTH and Vit D WNL Plan: defer routine labs as she just had full set 10/2023 and repeat of abnormal 02/2024. Refer to Hiren, Smith, [facility] for counseling and genetics Cont care w/ wt mgmt Cont all meds as directed Let me know via the portal if you want me to refer to the [facility] to help w/ AUD RTO in 3 months to f/u on WILBUR, MDD, AUD, sooner PRN PFSH Medical History (Updated 03/14/24 @ 11:49 by Deisy Montgomery, [facility]) BMI 37.0-37.9, adult Obesity [place] (obstructive sleep apnea) Rash and nonspecific skin eruption Hx of migraine headaches Anemia Anxiety Depression GERD (gastroesophageal reflux disease) Morbid obesity Surgical History History of sleeve gastrectomy History of esophagogastroduodenoscopy (EGD) S/P tonsillectomy Family History (Updated 03/14/24 @ 10:52 by Herbie Quiroz MA) Father Blood clot in vein Heart disease Mental health disorder Substance abuse Mother No problems noted. Brother No problems noted. Social History (Updated 03/14/24 @ 10:55 by Herbie Quiroz MA) Household Members: None Housing: Apartment Are you a primary healthcare customer service to a significant other at home: No Do you presently have visiting nurse or other home services: No 75 years or older and lives alone: No Alcohol intake: current Alcohol intake frequency: a few times a month Comment: aware of trip hazard Patient Tobacco Use Status: Never used Tobacco e-Cigarette/Vaping Use: Never Used Substance Use Type: Marijuana Advance Directives Date on File: 04/16/20 service: No Current occupational status: employed and disabled 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 1. Little interest or pleasure in doing things: more than half the days 2. Feeling down, depressed, or hopeless: more than half the days 3. Trouble falling or staying asleep, or sleeping too much: more than half the days 4. Feeling tired or having little energy: nearly every day 5. Poor appetite or overeating: nearly every day 6. Feeling bad about yourself - or that you are a failure or have let yourself or your family down: nearly every day 7. Trouble concentrating on things, such as reading the newspaper or watching television: nearly every day 8. Moving or speaking so slowly that other people could have noticed. Or the opposite - being so fidgety or restless that you have been moving around a lot more than usual: not at all 9. Thoughts that you would be better off or of hurting yourself in some way: several days Total score: 19 Depression Screening Interpretation: Positive Depression Screening Follow-up: Existing condition and In treatment Depression Screening Done: Yes 46649 - PHQ-9 Billing: Yes Source: Developed by Drs. Todd Pak, Cinda Rivera, Ezequiel Menendez and colleagues, with an educational raz from [employer]. Thrive Questionnaire Date Thrive assessed: 03/14/24 I am a: Patient What is your living situation today?: I have a steady place to live Within the past 12 months, did the food you bought not last and you didn't have the money to get more?: Never true Within the past 12 months, did you worry whether your food would run out before you got money to buy more?: Never true Do you have trouble paying for medicines?: No Do you have trouble getting transportation to medical appointments?: No Do you have trouble paying your heating and electricity bill?: No Do you have trouble taking care of your child, family member or friend?: No Do you have trouble with day-to-day activities such as bathing, preparing meals, shopping, managing finances, etc.?: No Are you currently unemployed and looking for a job?: No Are you interested in more education?: No Please select the resources that you would like help with: None Currently or been in a relationship where the following occur: No concerns reported THRIVE Score: 0 AUDIT C Alcohol Use Questionnaire (AUDIT-C) 1. How often do you have a drink containing alcohol?: 4 or more times a week 2. How many drinks containing alcohol do you have on a typical day when you are drinking?: 5 or 6 3. How often do you have six or more drinks on one occasion?: Less than monthly Total Score: 7 Score Reviewed/Action Taken: Yes WILBUR-7 AMB Questionnaire WILBUR-7 Date WILBUR - 7 assessed: 03/14/24 Feeling nervous, anxious, or on edge: 1 = Several days Not being able to stop or control worryin = More than half the days Worrying too much about different things: 2 = More than half the days Trouble relaxin = Several days Being so restless that it is hard to sit still: 1 = Several days Becoming easily annoyed or irritable: 2 = More than half the days Feeling afraid as if something awful might happen: 1 = Several days Total WILBUR-7 score (0-4 normal; 5-9 mild; 10-14 moderate; 15-21 severe): 10 Source: Developed by Drs. Todd Pak, Cinda Rivera, Ezequiel Menendez and colleagues, with an educational raz from [employer]. WILBUR-7 Assessment Billing WILBUR-7 Assessment Tool: WILBUR-7 Assessment 63254 Review of Systems Const Details: Constitutional: Denies fever. Skin: Denies rash. Eye: Denies eye pain. ENMT: Denies sore throat and nasal congestion. Respiratory: Denies shortness of breath and cough. Gastrointestinal: Denies nausea, vomiting or abdominal pain. Cardiovascular: Denies chest pain and syncope. Genitourinary: Denies dysuria. Musculoskeletal: Denies back pain and extremity pain. Neurologic: Denies headaches, confusion, and weakness. Psychiatric: Denies suicidal thoughts Allergy/ Immunologic: Denies impaired immunity. Physical exam (Primary Care) Vital Signs: Last Vital Signs Pulse 84 03/14/24 10:52 Resp 14 03/14/24 10:52 BP 122/68 03/14/24 10:52 Pulse Ox 98 03/14/24 10:52 Oxygen Delivery Method Room Air 03/14/24 10:52 BMI result Body Mass Index 35.6 BMI Assessment/Plan discussion: High BMI High, discussed plan: lifestyle Tobacco/Smoking Status: Tobacco use Status Tobacco use date assessed 03/14/24 03/14/24 10:55 Patient Tobacco Use Status Never used Tobacco 03/14/24 10:55 e-Cigarette/Vaping Use Never Used 03/14/24 10:55 Depression Screening Interpretation: Positive Depression Screening Follow-up: Existing condition and In treatment Currently or been in a relationship where the following occur: No concerns reported Const Other: General: Well developed, well nourished, in no acute distress. Appears stated age. Head: Normocephalic, atraumatic. Eyes: Pupils are equal, round and reactive to light and accommodation. Conjunctivae are clear. Vision grossly normal. Ears: TMs clear AU, EACS WNL Nose: Patent, without discharge. Mouth: There are no ulcers or lesions noted. No inflammation, no post nasal drip, no plaques nor exudates. Neck: Supple, no adenopathy or thyromegaly. Lungs: Clear to auscultation bilaterally. No rales, rhonchi or wheeze noted. Good air flow in all multani. Heart: Regular rate and rhythm. No murmurs, click, rubs or gallops are noted. Abdomen: Bowel sounds present in all quadrants. The abdomen is soft, nontender, with no masses or organomegaly noted. No hernias are noted. Musculoskeletal: Joints are nontender, without swelling, redness, or effusions. Range of motion is observed to be normal. Pulses: Peripheral pulses are equal and palpable bilaterally. Extremities: No clubbing, cyanosis nor edema is noted. Neurologic: Gait and station normal. Cranial Nerves 2-12 intact. Motor strength grossly symmetrical and intact. No sensory loss. Balance normal. Skin: No rashes, ulcers, or lesions noted. Turgor is good. Skin color is good. Hair and nails are without abnormalities. oval raised guardado nevus with 2 dark brown spots in the center, regular borders noted to right flank Psych: Anxious, tremulous, gaurded, Patient is alert and appropriate to context. Assessment and Plan Assessment & Plan (1) Encounter for general adult medical examination without abnormal findings: Code(s): Z00.00 - Encounter for general adult medical examination without abnormal findings (2) MDD (major depressive disorder), recurrent episode: Code(s): F33.9 - Major depressive disorder, recurrent, unspecified Qualifiers: Major depression episode severity: moderate Qualified Code(s): F33.1 - Major depressive disorder, recurrent, moderate (3) Alcohol use disorder, mild, abuse: Code(s): F10.10 - Alcohol abuse, uncomplicated (4) WILBUR (generalized anxiety disorder): Code(s): F41.1 - Generalized anxiety disorder (5) Dry eye: Code(s): H04.129 - Dry eye syndrome of unspecified lacrimal gland (6) Atypical nevi: Comment: right flank Code(s): D22.9 - Melanocytic nevi, unspecified (7) Iron deficiency anemia: Code(s): D50.9 - Iron deficiency anemia, unspecified Qualifiers: Iron deficiency anemia type: inadequate dietary iron intake Qualified Code(s): D50.8 - Other iron deficiency anemias (8) GERD (gastroesophageal reflux disease): Code(s): K21.9 - Gastro-esophageal reflux disease without esophagitis Qualifiers: Esophagitis bleeding: without hemorrhage Esophagitis presence: with esophagitis Qualified Code(s): K21.00 - Gastro-esophageal reflux disease with esophagitis, without bleeding (9) PCOS (polycystic ovarian syndrome): Code(s): E28.2 - Polycystic ovarian syndrome (10) Hepatic steatosis: Code(s): K76.0 - Fatty (change of) liver, not elsewhere classified (11) Severe obesity (BMI 35.0-35.9 with comorbidity): Code(s): E66.01 - Morbid (severe) obesity due to excess calories; Z68.35 - Body mass index [BMI] 35.0-35.9, adult (12) Family history of breast cancer: Comment: maternal aunt breast ca age 40, paternal aunt age 67 breast ca. Code(s): Z80.3 - Family history of malignant neoplasm of breast (13) Family history of hypercoagulability: Comment: hx of hypercoaguable disorder - Dad, paternal aunt and paternal grandmother with some genetic mutation ... unsure what but she is negative for this gene OCP contraindicated Code(s): Z83.2 - Family history of diseases of the blood and blood-forming organs and certain disorders involving the immune mechanism Orders: Referrals Genetics Referral Z80.3 - Family history of malignant neoplasm of breast Nurse Navigator Referral F33.9 - Major depressive disorder, recurrent, unspecified, F41.1 - Generalized anxiety disorder Ophthalmology Referral H04.129 - Dry eye syndrome of unspecified lacrimal gland Dermatology Referral D22.9 - Melanocytic nevi, unspecified Medications: New bupropion HCl XL (Wellbutrin XL) 150 mg PO QAM 90 tabs 0RF fluoxetine (Prozac) 80 mg (2 x 40 mg) PO QAM 180 caps 0RF quetiapine (Seroquel) 12.5 mg (1/2 x 25 mg) PO BEDTIME 90 days 45 tabs 0RF Patient Instructions: Comprehensive Care Clinic at [facility] for alcohol Walk-In Care (Urgent Care): We Make it Easy Walk-in for urgent medical issues such as: ? Seasonal Allergies ? Insect Bites ? Cough ? Diarrhea ? Acute Asthma Attacks ? Back, Knee or Joint Pain ? Ear Infection ? Fever without a Rash ? Headaches ? Nausea ? [place] Eye, Rash or Skin Irritation ? Sore Throat ? Sports Physicals ? Vomiting Most insurances are accepted. Patients do not need to be part of the [facility] to seek care at the walk-in clinic. Locations [facility] [address]boza, [place] [address] ? [phone] [facility] Walk-In Care in [place] provides services to ages 18 and over. Open Thursday-Thursday: 8 a.m. to 5 p.m. and Thursday: 9 a.m. to 3 p.m.* *Hours may vary due to staffing availability. To confirm Walk-In Care hours in [place], please call [phone]. [address] [facility] [address], [place] [address] ? [phone] [facility] Walk-In Care in [place] provides services to ages 12 and over. Open Thursday-Thursday: 8 a.m. to 5 p.m. Hours may vary due to staffing availability. To confirm Walk-In Care hours in [place], please call [phone]. LABORATORY SERVICES: [facility] Lab ? Primary Location [address] [place] [address] Thursday through Thursday 6:00 AM ? 5:00 PM Thursday 7:00 AM ? 11:00 AM* [phone] The [facility] Lab is centrally located near the front entrance of the [facility] for easy outpatient access. Convenient parking is provided for outpatients. *Hours may vary due to staffing availability. To confirm Laboratory hours for any location, please call [phone]. Offsite Location For your convenience, we offer offsite laboratory draw stations at the following locations: [address] [place] [address] ? [address], [address] Thursday through Thursday 7:30 AM ? 1:00 PM* [phone] *Hours may vary due to staffing availability. To confirm Laboratory hours for any location, please call [phone]. [place] ? [address] Thursday through Thursday 6:00 AM ? 3:30 PM* Thursday 6:30 AM ? 3 PM* [phone] *Hours may vary due to staffing availability. To confirm Laboratory hours for any location, please call [phone] [place] [address] Thursday through Thursday 7:30 AM ? 4:00 PM* [phone] *Hours may vary due to staffing availability. To confirm Laboratory hours for any location, please call [phone] [place] [address] Thursday through 9:00 AM ? 4:00 PM* *Hours may vary due to staffing availability. To confirm Laboratory hours for any location, please call [phone]. Appointments are not necessary. Walk-ins are welcome. Like all the departments throughout the [facility], our Lab undergoes frequent reviews to ensure the quality and accuracy of test results, and our staff takes special pride in its status as a nationally accredited facility. Patient Portal: ONE PATIENT. ONE RECORD. BETTER CARE. [facility] has a fully integrated, cutting- edge mobile electronic health information system that has revolutionized the way we care for our patients and manage our organization. This system improves communication and coordination enabling us to provide safe, higher-quality care, and an overall positive experience for staff and patients. Our first priority, as always, is to deliver the highest quality care possible. The system is running in the background supporting that priority. This portal is for all [facility] and [facility] services and practices. If you are experiencing any technical difficulties with enrolling or logging into the Patient Portal please complete the [facility] Patient Portal Technical Support Form. [facility] now offers a new secure on-line interactive tool for patients to review their health information ? ?Patient Portal. This interactive web portal will enable patients and their families to take an active role in their care by providing easy, secure access to their health information via the internet. The Patient Portal provides patients with instant access to their health information, including laboratory results, medications, allergies, demographic information, visit history, and more. In addition to managing their own care, parents and health care proxies with authorized consent will appreciate the ability to access the records of those individuals for whom they provide care. Please note: if you wish to gain access (Proxy) to another patient?s portal, you will be required to come to the Medical Records Department in person at [facility]. Both the patient giving proxy access and the proxy will need to provide photo identification and complete the appropriate authorization. The Patient Portal also allows track their appointments online. The [facility] Patient Portal also saves patients time by allowing them to submit updates to their demographic and contact information prior to their visits. Portal email notifications will also alert patients to any new activity on their portal, such as test results and new appointments. In order to initially enroll in the [facility] Patient Portal, you will need to enter some required information including the following: * your [facility] Medical Record number * your personal home email address * name * date of Please note: In order to enroll in the [facility] Patient Portal, we need to have your email address on file in your electronic medical record. ?The email address needs to be specific for one person (yourself) in order for your Portal enrollment to be successful. ?You can update your email address in person with our Registration staff when you are registering for a hospital visit. ?Otherwise, you will need to come to the Health Information Management (Medical Records) Department at [facility]. ?We are open from Thursday ? Thursday from 7:30 a.m. ? 4:30 p.m. ?You will be required to present a photo id. Once you have successfully enrolled in the Patient Portal, you will receive a one-time user id and password for the Portal, sent to your email address. ?This will allow you to log into the Patient Portal within 99 hrs and reset your own logon id and password, and define personal security questions. ?Once your permanent login and password have been set, you can log into the [facility] Patient Portal at any time via the blue button above or from the Portal Logon button on any page of the [facility] website. [facility] and [facility] encourage all of our patients to enroll in Patient Portal as it presents a valuable opportunity for patients and their families to actively participate in their care and stay healthy Welcome to [facility]. ?We look forward to working with you. Health screenings for women You should visit your health care provider from time to time, even if you are healthy. The purpose of these visits is to: Screen for medical issues Assess your risk for future medical problems Encourage a healthy lifestyle Update vaccinations and other preventive care services Help you get to know your provider in case of an illness Information Even if you feel fine, you should still see your provider for regular checkups. These visits can help you avoid problems in the future. For example, the only way to find out if you have high blood pressure is to have it checked regularly. High blood sugar and high cholesterol levels also may not have any symptoms in the early stages. A simple blood test can check for these conditions. There are specific times when you should see your provider or receive specific health screenings. The [place] Preventive Services Task Force publishes a list of recommended screenings. Below are screening guidelines for women ages 18 to 39. BLOOD PRESSURE SCREENING Your blood pressure should be checked at least once every 3 to 5 years if: Your blood pressure is in the normal range (top number less than 120 mm Hg and bottom number less than 80 mm Hg) You don't have risk factors for high blood pressure Ask your provider if you need your blood pressure checked more often if: The top number is 120 to 129 mm Hg or the bottom number is 70 to 79 mm Hg You have diabetes, heart disease, kidney problems, are overweight, or have certain other health conditions You have a first-degree relative with high blood pressure You are Black You had high blood pressure during a If the top number is 130 mm Hg or greater or the bottom number is 80 mm Hg or greater, this is considered stage 1 hypertension. Schedule an appointment with your provider to learn how you can reduce your blood pressure. Watch for blood pressure screenings in your area. Ask your provider if you can stop in to have your blood pressure checked. BREAST CANCER SCREENING Experts do not agree about the benefits of breast self-exams in finding breast cancer or saving lives. Talk to your provider about what is best for you. A screening mammogram is not recommended for most women under age 40. Your provider may discuss and recommend mammograms, MRI scans, or ultrasounds if you have an increased risk for breast cancer, such as: A mother or sister who had breast cancer at a young age (most often starting screening earlier than the age the close relative was diagnosed) You carry a high-risk genetic marker CERVICAL CANCER SCREENING Cervical cancer screening should start at age 21 years unless your provider advises otherwise. After the first test: Women ages 21 through 29 should have a Pap test every 3 years. Exoprts do not agree on whether HPV testing is recommended for this age group. Women ages 30 through 65 should be screened with either a Pap test every 3 years or the HPV test every 5 years or both tests every 5 years (called cotesting ). Women who have been treated for precancer (cervical dysplasia) should continue to have Pap tests for 20 years after treatment or until age 65, whichever is longer. If you have had your uterus and cervix removed (total hysterectomy), and you have not been diagnosed with cervical cancer or precancer (high grade cervical neoplasia), you do not need cervical cancer screening. CHOLESTEROL SCREENING Cholesterol screening should begin at: Age 45 for women with no known risk factors for coronary heart disease Age 20 for women with known risk factors for coronary heart disease Repeat cholesterol screening should take place: Every 5 years for women with normal cholesterol levels More often if changes occur in lifestyle (including weight gain and diet) More often if you have diabetes, heart disease, kidney problems, or certain other conditions DIABETES SCREENING You should be screened for diabetes starting at age 35 and then repeated every 3 years if you have no risk factors for diabetes. Screening may need to start earlier and be repeated more often if you have other risk factors for diabetes, such as: You have a first degree relative with diabetes. You are overweight or have obesity. You have high blood pressure, prediabetes, or a history of heart disease. Screening for diabetes should be done if you are planning to become and you are overweight and have other risk factors such as high blood pressure. DENTAL EXAM Go to the dentist once or twice every year for an exam and cleaning. Your dentist will evaluate if you need more frequent visits. EYE EXAM Have an eye exam every 5 to 10 years before age 40. If you have vision problems, have an eye exam every 2 years or more often if recommended by your provider. You should have an eye exam that includes an examination of your retina (back of your eye) at least every year if you have diabetes. IMMUNIZATIONS Commonly needed vaccines include: Flu shot: get one every year. COVID-19 vaccine: ask your provider what is best for you. Tetanus-diphtheria and acellular pertussis (Tdap) vaccine: have one at or after age 19 as one of your tetanus-diphtheria vaccines if you did not receive it as an adolescent. Tetanus-diphtheria: have a booster (or Tdap) every 10 years. Varicella vaccine: receive 2 doses if you never had chickenpox or the varicella vaccine. Hepatitis B vaccine: receive 2, 3, or 4 doses, depending on your exact circumstances. Measles, mumps, and rubella (MMR) vaccine: receive 1 to 2 doses if you are not already immune to MMR. Your provider can tell you if you are immune. Ask your provider about the human papillomavirus (HPV) vaccine if: You have not received the HPV vaccine in the past You have not completed the full vaccine series (you should catch up on this shot) Ask your provider if you should receive other immunizations if you have certain health problems that increase your risk for some diseases such as pneumonia. INFECTIOUS DISEASE SCREENING Women who are sexually active should be screened for chlamydia and gonorrhea up until age 25. Women 25 years and older should be screened for chlamydia and gonorrhea if at high risk. Screening for hepatitis C: All adults ages 18 to 79 should get a one-time test for hepatitis C. people should be screened at every . Screening for human immunodeficiency virus (HIV): All people ages 15 to 65 should get a one-time test for HIV. Depending on your lifestyle and medical history, you may also need to be screened for infections such as syphilis and HIV, as well as other infections. PHYSICAL EXAM All adults should visit their provider from time to time, even if they are healthy. The purpose of these visits is to: Screen for disease Assess your risk of future medical problems Encourage a healthy lifestyle Update your vaccinations and other preventive care services Maintain a relationship with a provider in case of an illness Your height, weight, and BMI should be checked at every exam. During your exam, your provider may ask you about: Depression and anxiety Diet and exercise Alcohol and tobacco use Safety issues, such as using seat belts, smoke detectors, and intimate partner violence Your medicines and risk for interactions SKIN SELF-EXAM Your provider may check your skin for signs of skin cancer, especially if you're at high risk, such as if you: Have had skin cancer before Have close relatives with skin cancer Have a weakened immune system OTHER SCREENING Talk with your provider about colon cancer screening if you have a strong family history of colon cancer or polyps, or if you have had inflammatory bowel disease or polyps yourself. Routine bone density screening of women under 40 is not recommended. Coding Level of Care Code New Pt Prev Care 18-39yr(98683 Diagnoses Encounter for general adult medical examination without abnormal findings Z00.00 Moderate episode of recurrent major depressive disorder F33.1 Major depression episode severity: moderate Alcohol use disorder, mild, abuse F10.10 WILBUR (generalized anxiety disorder) F41.1 Dry eye H04.129 Atypical nevi D22.9 Iron deficiency anemia secondary to inadequate dietary iron intake D50.8 Iron deficiency anemia type: inadequate dietary iron intake Gastroesophageal reflux disease with esophagitis without hemorrhage K21.00 Esophagitis bleeding: without hemorrhage Esophagitis presence: with esophagitis PCOS (polycystic ovarian syndrome) E28.2 Hepatic steatosis K76.0 Severe obesity (BMI 35.0-35.9 with comorbidity) E66.01; Z68.35 Family history of breast cancer Z80.3 Family history of hypercoagulability Z83.2 Additional Codes WILBUR-7 Assessment Billing - WILBUR-7 Assessment Tool: WILBUR-7 Assessment [id number] ([id number])
[2024-03-14 10:52] VITALS: BP 122/68; PULSE 84; RESP 14; O2SAT 98; BMI 35.6
== END 2024-03-14 11:40 | disposition home or self-care (01) ==
PROVIDERS: PCP Nurse Practitioner Family; Visit Provider Nurse Practitioner Family
DX: Z00.00 Encounter for general adult medical examination without abnormal findings (principal); F33.1 Major depressive disorder, recurrent, moderate; F10.10 Alcohol abuse, uncomplicated; F41.1 Generalized anxiety disorder; H04.129 Dry eye syndrome of unspecified lacrimal gland; D22.9 Melanocytic nevi, unspecified; D50.8 Other iron deficiency anemias; K21.00 Gastro-esophageal reflux disease with esophagitis, without bleeding; E28.2 Polycystic ovarian syndrome; K76.0 Fatty (change of) liver, not elsewhere classified; E66.01 Morbid (severe) obesity due to excess calories; Z68.35 Body mass index [BMI] 35.0-35.9, adult; Z80.3 Family history of malignant neoplasm of breast; Z83.2 Family history of diseases of the blood and blood-forming organs and certain disorders involving the immune mechanism

== ENCOUNTER → 2024-03-14 10:42 | Outpatient (BNVA) | payer OTHER, SELFPAY | PROVIDERS: PCP Nurse Practitioner Family; Visit Provider Nurse Practitioner Family | DX: Z00.01 Encounter for general adult medical examination with abnormal findings (principal); F33.1 Major depressive disorder, recurrent, moderate; F10.10 Alcohol abuse, uncomplicated; F41.1 Generalized anxiety disorder; H04.129 Dry eye syndrome of unspecified lacrimal gland; D22.5 Melanocytic nevi of trunk; D50.8 Other iron deficiency anemias; K21.00 Gastro-esophageal reflux disease with esophagitis, without bleeding; E28.2 Polycystic ovarian syndrome; E66.01 Morbid (severe) obesity due to excess calories; Z68.35 Body mass index [BMI] 35.0-35.9, adult; Z80.3 Family history of malignant neoplasm of breast; Z83.2 Family history of diseases of the blood and blood-forming organs and certain disorders involving the immune mechanism | CPT/HCPCS: 96127 ==

== ENCOUNTER → 2024-03-15 09:13 | Outpatient (AMB) | payer OTHER, SELFPAY ==
--- NOTE | 2024-03-15 09:12 | A.OFFWM_ITS ---
Intake Intake Visit Reasons: VIDEO PO LSG 06/17/20 Allergies animal dander Allergy (Mild, Verified 03/14/24 11:21) Sneezing [facility] Medical History (Updated 03/15/24 @ 10:18 by Margret Marsh [facility]) Depression BMI 37.0-37.9, adult Obesity [place] (obstructive sleep apnea) Rash and nonspecific skin eruption Hx of migraine headaches Anemia Anxiety GERD (gastroesophageal reflux disease) Morbid obesity Surgical History (Reviewed 03/07/24 @ 10:37 by Iona Mcgovern [facility]) History of sleeve gastrectomy History of esophagogastroduodenoscopy (EGD) S/P tonsillectomy Family History (Updated 03/14/24 @ 10:52 by Herbie Quiroz MA) Father Blood clot in vein Heart disease Mental health disorder Substance abuse Mother No problems noted. Brother No problems noted. Social History (Updated 03/14/24 @ 10:55 by Herbie Quiroz MA) Household Members: None Housing: Apartment Are you a primary healthcare consulting manager to a significant other at home: No Do you presently have visiting nurse or other home services: No 75 years or older and lives alone: No Alcohol intake: current Alcohol intake frequency: a few times a month Comment: aware of trip hazard Patient Tobacco Use Status: Never used Tobacco e-Cigarette/Vaping Use: Never Used Substance Use Type: Marijuana Advance Directives Date on File: 04/16/20 service: No Current occupational status: employed and disabled 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 PT is looking for support learning healthy coping strategies for anxiety, stress and depression, while also working on weight-loss journey. She would like to be back at 140Lbs (lowest weight post-op) and ultimately be at her hea;lthy weight per BMI indicator and also have an active and healthier life. Today we completed part of her assessment and PT will be seen again for support. Presenting Concerns Referral Source WMP- Provider Reason for referral Support Post-op. Precipitating Event Weight gain, high stress and sadness. Hard time coping with life evets in the last year. Living Situation Current Living Situation Rent Comments PT lives alone in [place], [place]. Social History Family history and relationship PT is single, never . No children. Mother alive, dad 10 years ago. she had a brother. They live in [place] ([place]) PT reports they're very close. 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 Developmental history and status Diagnosed with high functioning diagnosis , ADHD, anxiety and depression. She had an IEP in school. Was on disability in 2019 and stop in late 2021 due to ASD and anxiety. Social support Mother, some friends. PT reports she has issues keeping friendships as she tends to isolate herself and making the moves to initiate Community support None. Saw a PCP yesterday and she had a positive experience. Muslim/Spirituality Zoroastrian. Not scientologist now. Cultural/Ethnic information White and . PT is from [place], been in [place] since 2016. Legal Involvement and History Current or historical involvement with the legal system? None reported. Education Highest grade completed Masters degree. Preferred learning style Written Currently enrolled in educational program? No Interested in further educational program? No Educational Interests/Skills Bachelors degree in [place] Masters in [employer] information science. 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 ) Wants help to find employment? No Meaningful activities Reading, watching TV, hiking. Financial Situation Describe current financial situation Comfortable Financial assistance? None Service Service? No Mental Health and Addiction Treatment Current/Past substance abuse? Yes Comments Alcohol: She has been working in the last month to decrease alcohol use. Limiting to weekends. In the last year she has been drinking more than usual, finding herself using alcohol to cope with sadness, triggered by the loss of a close aunt in january/2023. Around the same time she started working full-time and became more stressed. PT was using alcohol to relax, as it makes feel feel better and open. She was algo able to cry only if drunk. Cigarettes/Tobacco: None Cannabis/Edibles: uses Edibles couple times at week. Also Uses CBD when has panic-Sx. Current/Past addictive behavior concerns? No Psychiatric history PT reports she has been therapy since early life and started taking psych meds at age 8. She doesn't have therapist now but her PCP is prescribing her with psych meds. She was attending services at [facility], but when insurance changed she had to terminate services. Current meds: Wellbutrin HCL XL 150mg, Prozac 80mg, Seroquel 25mg for sleeping. PT reports she is stable with this meds but wants to eventually go off of medication. Assessment & Plan Assessment & Plan (1) Panic disorder: Code(s): F41.0 - Panic disorder [episodic paroxysmal anxiety] (2) Autism: Code(s): F84.0 - Autistic disorder (3) MDD (major depressive disorder), recurrent episode: Code(s): F33.9 - Major depressive disorder, recurrent, unspecified Qualifiers: Major depression episode severity: unspecified Qualified Code(s): F33.9 - Major depressive disorder, recurrent, unspecified Plan PT will return in 3 weeks to continue receiving support for identified needs. Next hailey: 04/04/2024 at 9:00am, [address] [facility]. Telehealth Telehealth [facility]health [facility] Location of provider rendering services: other Location of patient: address on file Patient Identification confirmed using: Name, : Yes Telehealth method: video Patient verbally consented to treatment: Yes Patient verbally consented to billing insurance company: Yes Patient informed of any privacy concerns related to visit: No Minutes spent on Phone/Video with Pt.: 55 Coding Level of Care Code New Pt Tele Psy Vaishali Lynever ([id number]) Patient Type New Diagnoses Panic disorder F41.0 Autism F84.0 Episode of recurrent major depressive disorder, unspecified depression episode severity F33.9 Major depression episode severity: unspecified Time Spent (min) 55 Comment Start time: 9:00 - End time: 9:55am
== END ==
LOC: HO.HBST 09:13
PROVIDERS: PCP Nurse Practitioner Family; Visit Provider Counselor Mental Health
DX: F41.0 Panic disorder [episodic paroxysmal anxiety] (principal); F84.0 Autistic disorder; F33.9 Major depressive disorder, recurrent, unspecified
CPT/HCPCS: 90791

== ENCOUNTER → 2024-03-15 09:13 | Outpatient (BNVA) | payer OTHER, SELFPAY | PROVIDERS: PCP Nurse Practitioner Family; Visit Provider Counselor Mental Health ==

== ENCOUNTER → 2024-04-04 09:14 | Outpatient (BNVA) | payer OTHER, SELFPAY | PROVIDERS: PCP Nurse Practitioner Family; Visit Provider Counselor Mental Health ==

== ENCOUNTER → 2024-04-04 09:14 | Outpatient (AMB) | payer OTHER, SELFPAY ==
--- NOTE | 2024-04-04 10:05 | A.OFFWM_ITS ---
Intake Intake Visit Reasons: VIDEO PO LSG 06/17/20 Allergies animal dander Allergy (Mild, Verified 03/14/24 11:21) Sneezing [facility] Medical History (Updated 03/15/24 @ 10:18 by Margret Marsh [facility]) Depression BMI 37.0-37.9, adult Obesity [place] (obstructive sleep apnea) Rash and nonspecific skin eruption Hx of migraine headaches Anemia Anxiety GERD (gastroesophageal reflux disease) Morbid obesity Surgical History History of sleeve gastrectomy History of esophagogastroduodenoscopy (EGD) S/P tonsillectomy Family History (Updated 03/14/24 @ 10:52 by Herbie Quiroz MA) Father Blood clot in vein Heart disease Mental health disorder Substance abuse Mother No problems noted. Brother No problems noted. 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 Recently they were laid-off at work and is concerned her job might be terminated, also struggling as she is questioning aspects of her life and over thinking about past/future events. Objective: PT presents for a follow up visit via Telehealth. Supportive/reflective listening, discussed functioning and Symptom presentation. Used iceberg exercise for psychoeducation about external/internal world and what she shows Vs what is underlying these concerns/challenges she showns or experiences. Discussed cycle of responses, leading to unhealthy coping mechanisms. Completed a mindfulness exercise to start working on becoming present in the here and now and, to start tacking things on her to-do list to improve her present life. Assessment/Response: * Mental status: Overwhelmed, anxious, tense. * Risk reported/identified: None reported/identified. Patient was open and engaged. Stated she felt understood and that modality was helpful. Plan: F/up in 2 weeks. Presenting Concerns Referral Source [facility]MP- Provider Reason for referral Support Post-op. Precipitating Event Weight gain, high stress and sadness. Hard time coping with life evets in the last year. Assessment & Plan Assessment & Plan (1) Panic disorder: Code(s): F41.0 - Panic disorder [episodic paroxysmal anxiety] (2) Autism: Code(s): F84.0 - Autistic disorder (3) MDD (major depressive disorder), recurrent episode: Code(s): F33.9 - Major depressive disorder, recurrent, unspecified Qualifiers: Major depression episode severity: unspecified Qualified Code(s): F33.9 - Major depressive disorder, recurrent, unspecified Plan Follow up in 2 weeks. Next hailey: 04/19/24 at 9am, Telehealth. Telehealth Telehealth Telehealth Platform: [facility] Location of provider rendering services: other Location of patient: address on file Patient Identification confirmed using: Name, : Yes Telehealth method: video Patient verbally consented to treatment: Yes Patient verbally consented to billing insurance company: Yes Patient informed of any privacy concerns related to visit: No Minutes spent on Phone/Video with Pt.: 55 Coding Level of Care Code Established Pt Tele Psytx >53 mins ([id number]) Patient Type Established Diagnoses Panic disorder F41.0 Autism F84.0 Episode of recurrent major depressive disorder, unspecified depression episode severity F33.9 Major depression episode severity: unspecified Time Spent (min) 55 Comment Star time: 10:05am, End time: 11:00am
== END ==
LOC: HO.HBST 09:14
PROVIDERS: PCP Nurse Practitioner Family; Visit Provider Counselor Mental Health
DX: F41.0 Panic disorder [episodic paroxysmal anxiety] (principal); F84.0 Autistic disorder; F33.9 Major depressive disorder, recurrent, unspecified
CPT/HCPCS: 90837

== ENCOUNTER 2024-07-01 10:32 | Outpatient (AMB) | payer OTHER, SELFPAY ==
--- NOTE | 2024-07-01 10:35 | A.OFFPC_ITS ---
Vital Signs 07/01/24 10:39 Height 5 ft Weight 199 lb 8 oz BMI 39.0 BP 117/70 Blood Pressure Location Lt brachial Position Sitting Respiration 12 Pulse 77 Pulse Source Pulse Oximeter Pulse Oximetry (%) 99 Oxygen Delivery Method Room Air Intake Visit Reasons: 3 months fu 30 min WILBUR, AUD Intake Note: 3 month follow up Product Builder Required: No Allergies animal dander Allergy (Mild, Verified 07/01/24 10:36) Sneezing Medication List - Last Reconciled 07/01/24 by Deisy Montgomery, MOCK UP ASSEMBLER- bupropion HCl XL (Wellbutrin XL) 150 mg PO QAM cholecalciferol (vitamin D3) 125 mcg PO DAILY fluoxetine (Prozac) 80 mg (2 x 40 mg) PO QAM iron,carbonyl-vitamin C 65 mg iron- 125 mg (Vitron-C) 1 tab PO BEDTIME mecobalamin (vitamin B12) mcg PO multivitamin 1 tab PO DAILY Tobacco use date assessed: 03/14/24 Dental Screening Dental Screen Date: 03/14/24 HPI HPI Comments History of Present Illness Details 33-year-old female with anemia, generali zed anxiety disorder, major depressive disorder, GERD, migraine headaches, PCOS, obesity, Mild hepatic steatosis, at risk for secondary hypercoagulation, Alchohol Use Disorder Status post tonsillectomy, S/P laparoscopic sleeve gastrectomy 2019, right middle finger surgery in childhood Social: 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 unsure what but she is negative for this gene Hospitalizations: a few inpatient psych admissions at [facility] and [facility] Health Maintenance: ? PAP UTD ? Tdap 02/15/19 Specialists: Bariatrics [facility] ObGyn Counselor Optho Derm Counselor Genetics Routine 3 months to f/u on WILBUR, MDD, AUD The patient reports experiencing ongoing difficulties with mood regulation and alcohol intake, which have persisted despite prior efforts to manage these conditions with medication and behavioral strategies. She states that after a recent trip, the challenges with alcohol consumption intensified following familial stressors, although there were no significant adverse events. She acknowledges recent conversations about naltrexone as a medication option but remains concerned about its suitability due to concurrent alcohol use. The patient is also exploring weight management, having felt overwhelmed by the pervasive focus on weight loss. She has a history of bariatric surgery and expresses mixed feelings regarding the potential for further surgical interventions. 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 Current medication includes Wellbutrin, with an added focus on lifestyle changes such as dietary modifications and structured sleep routines. Self dx seroquel. Physical Exam General: Awake, alert. No apparent distress Eyes: Sclera and conjunctiva clear bilaterally Cardiovascular: Regular rate and rhythm Respiratory: Clear to auscultation bilaterally Anxious, gaurded, cooperative Plan - Schedule a follow-up at the [facility] for evaluation of mood disorders and alcohol use. - Maintain current medication regimen - Continue support with healthy sleep pr actices and diet to optimize mood stabilization. Patient was informed and verbally consented to the use of an ambient scribe for clinic note documentation during this visit. Discussion Notes During the visit, I addressed the patient's management options for her anxiety and depressive disorders, seeking to align pharmacotherapy adjustments with her wellness goals. We discussed the potential role of the [facility] in supporting her alcohol use disorder given her current drinking patterns. I reassured her of the inclusive and non-restrictive outpatient support offered there. The social and emotional challenges linked to her weight and body image concerns were reviewed; I emphasized how mood and alcohol management could eventually aid in addressing these issues. I encouraged her to leverage the new means of independent mobility through her recent licensure as a resource for empowerment and mood enhancement. Referral communication for a preferred visitation day on Thursday was prioritized, given her expressed convenience for initiating a structured intervention. RTO in 8-12 weeks for routine complex fu, sooner PRN This note is constructed using voice recognition software. While every effort has been made to ensure accuracy in reading coach, still errors may have been included Sometimes, these errors may affect the content or meaning of the given sentence . Total time spent caring for the patient today was 30 minutes. This includes time spent before the visit reviewing the chart, time spent during the visit, and time spent after the visit on documentation [facility] Medical History (Updated 07/01/24 @ 10:59 by Deisy Montgomery, ERIC-) Depression BMI 37.0-37.9, adult Obesity [place] (obstructive sleep apnea) Rash and nonspecific skin eruption Hx of migraine headaches Anemia Anxiety GERD (gastroesophageal reflux disease) Morbid obesity Surgical History History of sleeve gastrectomy History of esophagogastroduodenoscopy (EGD) S/P tonsillectomy Family History (Updated 03/14/24 @ 10:52 by Herbie Quiroz MA) Father Blood clot in vein Heart disease Mental health disorder Substance abuse Mother No problems noted. Brother No problems noted. Social History (Updated 03/14/24 @ 10:55 by Herbie Quiroz MA) Household Members: None Housing: Apartment Are you a primary healthcare project manager to a significant other at home: No Do you presently have visiting nurse or other home services: No 75 years or older and lives alone: No Alcohol intake: current Alcohol intake frequency: a few times a month Comment: aware of trip hazard Patient Tobacco Use Status: Never used Tobacco e-Cigarette/Vaping Use: Never Used Substance Use Type: Marijuana Advance Directives Date on File: 04/16/20 service: No Current occupational status: employed and disabled 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 1. Little interest or pleasure in doing things: several days 2. Feeling down, depressed, or hopeless: several days 3. Trouble falling or staying asleep, or sleeping too much: several days 4. Feeling tired or having little energy: several days 5. Poor appetite or overeating: nearly every day 6. Feeling bad about yourself - or that you are a failure or have let yourself or your family down: more than half the days 7. Trouble concentrating on things, such as reading the newspaper or watching television: several days 8. Moving or speaking so slowly that other people could have noticed. Or the opposite - being so fidgety or restless that you have been moving around a lot more than usual: not at all 9. Thoughts that you would be better off or of hurting yourself in some wa y: not at all Total score: 10 Depression Screening Interpretation: Positive Depression Screening Follow-up: Existing condition and In treatment Depression Screening Done: Yes 59482 - PHQ-9 Billing: Yes Source: Developed by Drs. Todd Pak, Cinda Rivera, Ezequiel Menendez and colleagues, with an educational raz from [employer]. Thrive Questionnaire Date Thrive assessed: 07/01/24 I am a: Patient What is your living situation today?: I have a steady place to live Within the past 12 months, did the food you bought not last and you didn't have the money to get more?: Never true Within the past 12 months, did you worry whether your food would run out before you got money to buy more?: Never true Do you have trouble paying for medicines?: No Do you have trouble getting transportation to medical appointments?: No Do you have trouble paying your heating and electricity bill?: No Do you have trouble taking care of your child, family member or friend?: No Do you have trouble with day-to-day activities such as bathing, preparing meals, shopping, managing finances, etc.?: No Are you currently unemployed and looking for a job?: No Are you interested in more education?: No Please select the resources that you would like help with: None Currently or been in a relationship where the following occur: No concerns reported THRIVE Score: 0 AUDIT C Alcohol Use Questionnaire (AUDIT-C) 1. How often do you have a drink containing alcohol?: 4 or more times a week 2. How many drinks containing alcohol do you have on a typical day when you are drinking?: 3 or 4 3. How often do you have six or more drinks on one occasion?: Weekly Total Score: 8 Score Reviewed/Action Taken: Yes WILBUR-7 AMB Questionnaire WILBUR-7 Date WILBUR - 7 assessed: 07/01/24 Feeling nervous, anxious, or on edge: 1 = Several days Not being able to stop or control worryin = Several days Worrying too much about different things: 1 = Several days Trouble relaxin = More than half the days Being so restless that it is hard to sit still: 0 = Not at all Becoming easily annoyed or irritable: 1 = Several days Feeling afraid as if something awful might happen: 1 = Several days Total WILBUR-7 score (0-4 normal; 5-9 mild; 10-14 moderate; 15-21 severe): 7 Source: Developed by Drs. Todd Pak, Cinda Rivera, Ezequiel Menendez and colleagues, with an educational raz from [employer]. WILBUR-7 Assessment Billing WILBUR-7 Assessment Tool: WILBUR-7 Assessment 15169 Physical exam (Primary Care) Vital Signs: Last Vital Signs Pulse 77 07/01/24 10:39 Resp 12 07/01/24 10:39 BP 117/70 07/01/24 10:39 Pulse Ox 99 07/01/24 10:39 Oxygen Delivery Method Room Air 07/01/24 10:39 BMI result Body Mass Index 39.0 BMI Assessment/Plan discussion: High BMI High, discussed plan: lifestyle and physical activity Tobacco/Smoking Status: Tobacco use Status Tobacco use date assessed 03/14/24 07/01/24 10:35 Patient Tobacco Use Status Never used Tobacco 07/01/24 10:35 e-Cigarette/Vaping Use Never Used 07/01/24 10:35 PHQ-9: PHQ-9 Score PHQ-9: Total score 10 07/01/24 10:53 Depression Screening Interpretation: Positive Depression Screening Follow-up: Existing condition and In treatment Thrive Assessment: Date of Thrive Assessment Date Thrive assessed 07/01/24 07/01/24 10:38 Currently or been in a relationship where the following occur: No concerns reported Coding Level of Care Code Est Pt Level 4 (38717) Complex EM visit Add On G2211 Diagnoses Episode of recurrent major depressive disorder, unspecified depression episode severity F33.9 Major depression episode severity: unspecified Alcohol use disorder, mild, abuse F10.10 Severe obesity (BMI 35.0-35.9 with comorbidity) E66.01; Z68.35 WILBUR (generalized anxiety disorder) F41.1 Additional Codes WILBUR-7 Assessment Billing - WILBUR-7 Assessment Tool: WILBUR-7 Assessment 55141 ([id number]) PHQ-9 - 18508 - PHQ-9 Billing: Yes ([id number]) Assessment & Plan Assessment & Plan (1) MDD (major depressive disorder), recurrent episode: Code(s): F33.9 - Major depressive disorder, recurrent, unspecified Category: Medical Qualifiers: Major depression episode severity: unspecified Qualified Code(s): F33.9 - Major depressive disorder, recurrent, unspecified (2) Alcohol use disorder, mild, abuse: Code(s): F10.10 - Alcohol abuse, uncomplicated Category: Medical (3) Severe obesity (BMI 35.0-35.9 with comorbidity): Code(s): E66.01 - Morbid (severe) obesity due to excess calories; Z68.35 - Body mass index [BMI] 35.0-35.9, adult Category: Medical (4) WILBUR (generalized anxiety disorder): Code(s): F41.1 - Generalized anxiety disorder Category: Medical Plan . Orders: Referrals Addiction Medicine Referral F10.10 - Alcohol abuse, uncomplicated, F33.9 - Major depressive disorder, recurrent, unspecified, F41.1 - Generalized anxiety disorder
[2024-07-01 10:39] VITALS: BP 117/70; PULSE 77; RESP 12; O2SAT 99; BMI 39.0
== END 2024-07-01 11:11 | disposition home or self-care (01) ==
PROVIDERS: PCP Nurse Practitioner Family; Visit Provider Nurse Practitioner Family
DX: F33.9 Major depressive disorder, recurrent, unspecified (principal); F10.10 Alcohol abuse, uncomplicated; E66.01 Morbid (severe) obesity due to excess calories; Z68.35 Body mass index [BMI] 35.0-35.9, adult; F41.1 Generalized anxiety disorder

== ENCOUNTER → 2024-07-01 10:32 | Outpatient (BNVA) | payer OTHER, SELFPAY | PROVIDERS: PCP Nurse Practitioner Family; Visit Provider Nurse Practitioner Family | DX: F33.9 Major depressive disorder, recurrent, unspecified (principal); F41.1 Generalized anxiety disorder; F10.10 Alcohol abuse, uncomplicated; E66.01 Morbid (severe) obesity due to excess calories; Z68.35 Body mass index [BMI] 35.0-35.9, adult; Z98.84 Bariatric surgery status | CPT/HCPCS: 96127 ==

== ENCOUNTER 2024-07-04 09:42 | Outpatient (AMB) | payer OTHER, SELFPAY ==
--- NOTE | 2024-07-04 10:04 | MHC.AM.SUB ---
Intake Visit Reasons: Intake Allergies animal dander Allergy (Mild, Verified 07/01/24 10:36) Sneezing [facility] Medical History (Updated 07/01/24 @ 10:59 by Deisy Montgomery [facility]) Depression BMI 37.0-37.9, adult Obesity [place] (obstructive sleep apnea) Rash and nonspecific skin eruption Hx of migraine headaches Anemia Anxiety GERD (gastroesophageal reflux disease) Morbid obesity Surgical History History of sleeve gastrectomy History of esophagogastroduodenoscopy (EGD) S/P tonsillectomy Family History (Updated 03/14/24 @ 10:52 by Herbie Quiroz MA) Father Blood clot in vein Heart disease Mental health disorder Substance abuse Mother No problems noted. Brother No problems noted. Social History (Updated 03/14/24 @ 10:55 by Herbie Quiroz MA) Household Members: None Housing: Apartment Are you a primary medical care administrator to a significant other at home: No Do you presently have visiting nurse or other home services: No 75 years or older and lives alone: No Alcohol intake: current Alcohol intake frequency: a few times a month Comment: aware of trip hazard Patient Tobacco Use Status: Never used Tobacco e-Cigarette/Vaping Use: Never Used Substance Use Type: Marijuana Advance Directives Date on File: 04/16/20 service: No Current occupational status: employed and disabled 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
--- NOTE | 2024-07-04 10:30 | AM.OFFVISNUR ---
Vital Signs 07/06/24 08:59 Weight 191 lb Intake Visit Reasons: Intake Allergies animal dander Allergy (Mild, Verified 07/01/24 10:36) Sneezing Nursing Note Patient arrives to [facility] as a walk in intake, referred to our clinic by Fany Montgomery MINCING MACHINE OPERATOR who is her primary care provider. Pt arrives alert and oriented x4, flat affect, not making eye contact, appropriate when answering questions, speaking in very soft, slow sentences. Patient appeared anxious when answering questions regarding her drinking, was re assured that it is a non judgmental environment and that she was safe. She multiple times stated I mean I don't know if I have a problem, but I know I drink to cope with things . Patient acknowledged family deaths being events that have effected her coping, but did not divulge any further. Patient agreed to come back and meet with provider Princess Herrera APRN on thu. 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 What is your current relationship status?: single Substance Abuse History Substance Abuse History (includes route, frequency and quantity): Alcohol Social History Domestic Violence concerns: Denies Children: No Do you have a support system?: says yes but would not elobarate Current mode of transportation?: She drives, but states she just started driving and would much rather telehealth due to anxiety while driving. Are you using contraception?: No IV Drug Use Have you ever shared needles?: No Have you ever belonged to a needle exchange program?: No Do you buy needles at a pharmacy?: No Have you ever overdosed?: No Have you ever been hospitalized for an overdose?: No Was Naloxone administered?: Not applicable Recovery History Have you had any periods of recovery?: Yes Have you ever had inpatient treatment for your substance abuse disorder?: No Have you been in an inpatient detoxification program?: No Have you been in an inpatient Rehab/[place] house?: No Have you been in an outpatient Methadone Maintenance program?: No Have you been in an outpatient Suboxone Maintenance program?: No Have you been in an AA/NA support program?: No Have you had a Recovery Support Supervisor Incising?: No Behavioral Health History Do you have a current provider? If so, who?: Yes, ALKYLATION OPERATOR diagnosis: Depression History of other addictive behavior: denies History of inpatient psychiatric hospitalization? If so, how many? Most Recent? Where?: Yes, states many as a child at [facility] in [place], history of cutting and intentional overdoses on tylenol History of self harming thoughts?: Yes History of homicidal or suicidal intentions?: No Medical Conditions Endocarditis?: No Skin Infection: No Seizure related to withdrawal or overdose: No Head or brain injury: No Hepatitis A (if yes, have you been treated?): No Hepatitis B (if yes, have you been treated?): No Hepatitis C (if yes, have you been treated?): No HIV (if yes, have you been treated?): No TB (if yes, have you been treated?): No Other: No Do you have any chronic pain conditions?: Denies Details: States weight loss surgery 1 year ago, and was very upset looking down stating Jannette gained it all back . Legal History History of incarceration: No Currently on parole or probation: No Court mandated programs: No Pending court cases: No DCF involvement: No
== END 2024-07-04 13:16 | disposition home or self-care (01) ==
PROVIDERS: PCP Nurse Practitioner Family
DX: Z51.81 Encounter for therapeutic drug level monitoring (principal)

== ENCOUNTER → 2024-07-04 09:42 | Outpatient (BNVA) | payer OTHER, SELFPAY | PROVIDERS: PCP Nurse Practitioner Family; Visit Provider Nurse Practitioner Psychiatric/Mental Health | DX: F10.90 Alcohol use, unspecified, uncomplicated (principal) | CPT/HCPCS: 80307 ==

== ENCOUNTER 2024-07-05 09:57 | Outpatient (AMB) | payer OTHER, SELFPAY ==
--- NOTE | 2024-07-05 09:44 | A.OFFVIS_ITS ---
VS Expanded 07/05/24 09:48 Height 5 ft Weight 196 lb BMI 38.3 Intake Visit Reasons: TV PO LSG 06/17/20 Allergies animal dander Allergy (Mild, Verified 07/01/24 10:36) Sneezing Medication List - Last Reconciled 07/05/24 by TRISH Kumari bupropion HCl XL (Wellbutrin XL) 150 mg PO QAM cholecalciferol (vitamin D3) 125 mcg PO DAILY fluoxetine (Prozac) 80 mg (2 x 40 mg) PO QAM iron,carbonyl-vitamin C 65 mg iron- 125 mg (Vitron-C) 1 tab PO BEDTIME mecobalamin (vitamin B12) mcg PO multivitamin 1 tab PO DAILY HPI Comments Details: This?is a?33?yo female who is s/p LSG 06/17/2020. Presents for 4 year post op visit. Weight at last visit on 03/07/2024 was 176.4 pounds with a BMI of 34.4, weight today is 196 pounds, representing a 21.6 pound weight gain with a BMI today of 38.3.? No complaints of nausea, emesis, abdominal pain or reflux, or constipation. Pt continues to struggle with EtOH use which causes her to also make off plan choices. Did meet a few times with Margret, missed her last appt. Present meal plan includes: Breakfast- Premier protein water or Premier shake powder with 1 scoop Lunch- 2oz meat in homemade soup Dinner- 2oz protein, 2-3oz veg Snack- Latvian yogurt I have not been super consistent Exercise routine includes: I haven't really been exercising - wants to get back to gym Has excess skin of upper arms and abdomen and continues to have issues with both areas. Gets rashes at both locations, moisture gets trapped under skin fold of abdomen and causes an unpleasant odor. Excess skin of arms makes exercise difficult and causes discomfort due to heaviness of extra skin. Has tried clotrimazole for rashes but this has not completely resolved the issues. [facility] Medical History (Updated 07/01/24 @ 10:59 by Deisy Montgomery, [facility]-) Depression BMI 37.0-37.9, adult Obesity [place] (obstructive sleep apnea) Rash and nonspecific skin eruption Hx of migraine headaches Anemia Anxiety GERD (gastroesophageal reflux disease) Morbid obesity Surgical History History of sleeve gastrectomy History of esophagogastroduodenoscopy (EGD) S/P tonsillectomy Family History (Updated 03/14/24 @ 10:52 by Herbie Quiroz MA) Father Blood clot in vein Heart disease Mental health disorder Substance abuse Mother No problems noted. Brother No problems noted. Social History (Updated 03/14/24 @ 10:55 by Herbie Quiroz MA) Household Members: None Housing: Apartment Are you a primary special needs caregiver to a significant other at home: No Do you presently have visiting nurse or other home services: No 75 years or older and lives alone: No Alcohol intake: current Alcohol intake frequency: a few times a month Comment: aware of trip hazard Patient Tobacco Use Status: Never used Tobacco e-Cigarette/Vaping Use: Never Used Substance Use Type: Marijuana Advance Directives Date on File: 04/16/20 service: No Current occupational status: employed and disabled 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 Goal 80g protein per day. She will also text me weekly with weight measurements to stay accountable. Will schedule another appt with Margret. Encouraged pt to text me between visits with any questions or concerns. RTC 6 months. I spent a total of 30 minutes reviewing/updating records, examining the patient and counseling the patient on weight management as detailed above.
[2024-07-05 09:48] VITALS: BMI 38.3
== END 2024-07-05 10:17 | disposition home or self-care (01) ==
LOC: HO.HBS 09:57
PROVIDERS: PCP Nurse Practitioner Family; Visit Provider Physician Assistant Surgical
DX: E66.812 Obesity, class 2 (principal); Z68.38 Body mass index [BMI] 38.0-38.9, adult; Z90.3 Acquired absence of stomach [part of]; Z98.84 Bariatric surgery status
CPT/HCPCS: 98968

== ENCOUNTER → 2024-07-05 09:57 | Outpatient (BNVA) | payer OTHER, SELFPAY | PROVIDERS: PCP Nurse Practitioner Family; Visit Provider Physician Assistant Surgical | DX: Z98.84 Bariatric surgery status (principal); E66.9 Obesity, unspecified ==

== ENCOUNTER 2024-07-06 10:19 | Outpatient (AMB) | payer OTHER, SELFPAY ==
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
== END 2024-07-06 16:10 | disposition home or self-care (01) ==
LOC: HO.HCC 10:19
PROVIDERS: PCP Nurse Practitioner Family; Visit Provider Nurse Practitioner Psychiatric/Mental Health
DX: F10.20 Alcohol dependence, uncomplicated (principal)
CPT/HCPCS: 99214

== ENCOUNTER 2024-08-08 09:13 | Outpatient (AMB) | payer OTHER, SELFPAY ==
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
== END 2024-08-08 10:20 | disposition home or self-care (01) ==
LOC: HO.HBST 09:13
PROVIDERS: PCP Nurse Practitioner Family; Visit Provider Counselor Mental Health
DX: F41.0 Panic disorder [episodic paroxysmal anxiety] (principal); F84.0 Autistic disorder; F33.9 Major depressive disorder, recurrent, unspecified
CPT/HCPCS: 90837

== ENCOUNTER 2024-08-29 08:00 | Outpatient (AMB) | payer OTHER, SELFPAY ==
--- NOTE | 2024-08-29 08:00 | A.OFFWM_ITS ---
Intake Intake Visit Reasons: VIDEO PO LSG 06/17/20 Allergies animal dander Allergy (Mild, Verified 07/01/24 10:36) Sneezing [facility] Medical History (Updated 07/13/24 @ 17:53 by Princess Herrera CNP) Depression BMI 37.0-37.9, adult Obesity [place] (obstructive sleep apnea) Rash and nonspecific skin eruption Hx of migraine headaches Anemia Anxiety GERD (gastroesophageal reflux disease) Morbid obesity Surgical History History of sleeve gastrectomy History of esophagogastroduodenoscopy (EGD) S/P tonsillectomy Family History (Updated 03/14/24 @ 10:52 by Herbie Quiroz MA) Father Blood clot in vein Heart disease Mental health disorder Substance abuse Mother No problems noted. Brother No problems noted. Social History (Updated 03/14/24 @ 10:55 by Herbie Quiroz MA) Household Members: None Housing: Apartment Are you a primary residential child care counselor to a significant other at home: No Do you presently have visiting nurse or other home services: No 75 years or older and lives alone: No Alcohol intake: current Alcohol intake frequency: a few times a month Comment: aware of trip hazard Patient Tobacco Use Status: Never used Tobacco e-Cigarette/Vaping Use: Never Used Substance Use Type: Marijuana Advance Directives Date on File: 04/16/20 service: No Current occupational status: employed and disabled 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 Hard to tolerate the Naltrexone, she will be speaking with prescriber about alternatives. She's taking Wellbutrin 150mg 1 at day and Fluoxetine 80mg, prescribed by her PCP. Objective: PT presents for a f/up visit via Telehealth. . Discussed functioning, needs and challenges. Worked in decision making, cycle of anxiety and strategies to start identifying and working on her mental/emotional/behavioral/physilogical responses when anxious that lead to worsen Sx or self-sabotage and lead to engage in unhealthy coping strategies. Relfective listening implemented and constructive feedback provided. Fort his session CBT-based interventions were used. Assessment/Response: * Mental status: stressed, anxious. Mild functioning issues reported. * Risk reported/identified: None. PT was very open and engaged. she showed herself reflective about her own role and responses that self-sabotage. Assessment & Plan Assessment & Plan (1) Panic disorder: Code(s): F41.0 - Panic disorder [episodic paroxysmal anxiety] (2) Autism: Code(s): F84.0 - Autistic disorder (3) MDD (major depressive disorder), recurrent episode: Code(s): F33.9 - Major depressive disorder, recurrent, unspecified Qualifiers: Major depression episode severity: unspecified Qualified Code(s): F33.9 - Major depressive disorder, recurrent, unspecified Plan Follow up in 1 month per client's request as she was unable to do a sooner visit. Next hailey: 10/03/2024 at 8am. Telehealth Telehealth Telehealth Platform: [employer] Location of provider rendering services: other Location of patient: address on file Patient Identification confirmed using: Name, : Yes Telehealth method: video (started with video then switched to voice due to Patient's connection issues. ) Patient verbally consented to treatment: Yes Patient verbally consented to billing insurance company: Yes Patient informed of any privacy concerns related to visit: Yes Minutes spent on Phone/Video with Pt.: 60 Coding Level of Care Code Established Pt Tele Psytx >53 mins (57718) Patient Type Established Diagnoses Panic disorder F41.0 Autism F84.0 Episode of recurrent major depressive disorder, unspecified depression episode severity F33.9 Major depression episode severity: unspecified Time Spent (min) 60
--- OUTSIDE RECORDS SUMMARY | 2024-08-29 08:20 | XMS_ITS | Clinical Summary ---
Author Organization [facility] it Address [address] [place] [address] Care Team Providers Care Electronics Technician Apprentice Name Role Phone Unavailable Primary Care Provider Unavailabl e Social History Tobacco Use Types Packs/Day Years Used Date Smoking Tobacco: Never Assessed Comments Unknown Sex and Gender Information Value Date Recorded Sex Assigned at Not on file Legal Sex Female 9:08 PM EST Gender Identity Not on file Sexual Orientation Not on file Plan of Treatment Health Maintenance Due Date Last Done Comments DTaP,Tdap,and Td Vaccines (1 - Tdap) 2008 Hepatitis B Vaccines (1 of 3 - 19+ 3-dose series) 2008 Cervical Cancer Screening: P ap Smear 2010 Depression Screening 07/24/2023 HIV Screening 07/24/2023 Hepatitis C Screening 07/24/2023 Social Influencers of Health Screening 07/24/2023 COVID-19 Vaccine ( - 2023-2 5 season) 2024 Influenza Vaccine (#1) 2024 HIB Vaccines Aged Out No longer eligi ble based on patient's age to complete this topic HPV Vaccines Aged Out No longer eligi ble based on patient's age to complete this topic Hepatitis A Vaccines Aged Out No long er eligible based on patient's age to complete this topic IPV Vaccines Aged Out No longer eligi ble based on patient's age to complete this topic MMR Vaccines Aged Out No longer eligi ble based on patient's age to complete this topic Meningococcal ACWY Vaccine Aged Out N o longer eligible based on patient's age to complete this topic Meningococcal B Vacine Aged Out No lo nger eligible based on patient's age to complete this topic Pneumococcal Vaccine: Pediat rics (0 to 5 Years) and At-Risk Patients (6 to 64 Years) Aged Out No longer eligible b ased on patient's age to complete this topic RSV Immunization Patients Un sayra 20 months Aged Out No longer eligible b ased on patient's age to complete this topic Varicella Vaccines Aged Out No longer eligible based on patient's age to complete this topic
== END 2024-08-29 09:00 | disposition home or self-care (01) ==
LOC: HO.HBST 08:11
PROVIDERS: PCP Nurse Practitioner Family; Visit Provider Counselor Mental Health
DX: F41.0 Panic disorder [episodic paroxysmal anxiety] (principal); F84.0 Autistic disorder; F33.9 Major depressive disorder, recurrent, unspecified
CPT/HCPCS: 90837

== ENCOUNTER 2024-09-12 13:21 | Outpatient (AMB) | payer OTHER, SELFPAY ==
--- NOTE | 2024-09-12 13:09 | A.OFFVISCC_ITS ---
Intake Visit Reasons: MAT Tele Allergies animal dander Allergy (Mild, Verified 07/01/24 10:36) Sneezing HPI HPI MAT Tele: Details: Patient presents for follow up via telehealth Seen in June for AUD and planned to trial Naltrexone Today she reports that she has been taking Naltrexone at 1/4 to 1/2 tab, because she finds that it makes her tired States she took it in the evenings and still felt tired the next day Has not taken it in a couple of weeks Reports that she has decreased her alcohol intake Unable to quantify how much she has been drinking Does report a period of several weeks of not drinking --unsure when that was Review of Systems Const Reports daytime sleepiness (with medication ) Telehealth Telehealth Telehealth Platform: Telephone Location of provider rendering services: practice address Location of patient: other Patient Identification confirmed using: Name, : Yes Telehealth method: voice only Patient verbally consented to treatment: Yes Patient verbally consented to billing insurance company: Yes Minutes spent on Phone/Video with Pt.: 12 [facility] Medical History (Updated 07/13/24 @ 17:53 by Princess Herrera CNP) Depression BMI 37.0-37.9, adult Obesity [place] (obstructive sleep apnea) Rash and nonspecific skin eruption Hx of migraine headaches Anemia Anxiety GERD (gastroesophageal reflux disease) Morbid obesity Surgical History History of sleeve gastrectomy History of esophagogastroduodenoscopy (EGD) S/P tonsillectomy Family History (Updated 03/14/24 @ 10:52 by Herbie Quiroz MA) Father Blood clot in vein Heart disease Mental health disorder Substance abuse Mother No problems noted. Brother No problems noted. Social History (Updated 03/14/24 @ 10:55 by Herbie Quiroz MA) Household Members: None Housing: Apartment Are you a primary ocular care technologist to a significant other at home: No Do you presently have visiting nurse or other home services: No 75 years or older and lives alone: No Alcohol intake: current Alcohol intake frequency: a few times a month Comment: aware of trip hazard Patient Tobacco Use Status: Never used Tobacco e-Cigarette/Vaping Use: Never Used Substance Use Type: Marijuana Advance Directives Date on File: 04/16/20 service: No Current occupational status: employed and disabled 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 Has a lot happening right now with work and purchasing a new home
--- OUTSIDE RECORDS SUMMARY | 2024-09-12 15:29 | XMS_ITS | Clinical Summary ---
Author Organization [facility] it Address [address] [place] [address] Care Team Providers Care Sterile Processing Technologist Name Role Phone Unavailable Primary Care Provider [...]
== END 2024-09-12 13:33 | disposition home or self-care (01) ==
LOC: HO.HCC 13:21
PROVIDERS: PCP Nurse Practitioner Family; Visit Provider Nurse Practitioner Psychiatric/Mental Health
DX: F10.20 Alcohol dependence, uncomplicated (principal)
CPT/HCPCS: 98012

== ENCOUNTER → 2024-09-12 13:21 | Outpatient (BNVA) | payer OTHER, SELFPAY | PROVIDERS: PCP Nurse Practitioner Family; Visit Provider Nurse Practitioner Psychiatric/Mental Health | DX: Z51.81 Encounter for therapeutic drug level monitoring (principal); F10.20 Alcohol dependence, uncomplicated ==

== ENCOUNTER 2024-10-03 08:12 | Outpatient (AMB) | payer OTHER, SELFPAY ==
--- NOTE | 2024-10-03 08:00 | MHC.WMTHER ---
Intake Intake Visit Reasons: VIDEO PO LSG 06/17/20 Allergies animal dander Allergy (Mild, Verified 07/01/24 10:36) Sneezing [facility] Medical History (Updated 07/13/24 @ 17:53 by Princess Herrera CNP) Depression BMI 37.0-37.9, adult Obesity [place] (obstructive sleep apnea) Rash and nonspecific skin eruption Hx of migraine headaches Anemia Anxiety GERD (gastroesophageal reflux disease) Morbid obesity Surgical History History of sleeve gastrectomy History of esophagogastroduodenoscopy (EGD) S/P tonsillectomy Family History (Updated 03/14/24 @ 10:52 by Herbie Quiroz MA) Father Blood clot in vein Heart disease Mental health disorder Substance abuse Mother No problems noted. Brother No problems noted. 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 She shared a few specific situations at work that are affecting her emotionally. Additionally, the patient mentions that her days lack structure, and she has been engaging in binge eating and excessive snacking as a coping mechanism. She expresses a desire for more routine in her daily life. Objective: The patient presents for a follow-up session via Telehealth. During the session, we discussed her current functioning and processed the feelings, worries, and ongoing challenges she is facing. Cognitive Behavioral Therapy (CBT) techniques were used, including an ABC (Bhmffabmmw-Kytfcpnx-Bbvqemuwcab) analysis, to explore the triggers at work and her emotional responses to them. We reflected on her emotional dysregulation and the importance of creating a structured routine to help manage stress and promote consistency in her efforts to regulate her emotions. A behavioral modification approach was applied through a behavioral activation plan, which the patient agreed to implement today. We also discussed what aspects of her life are within her control versus outside of it, and reviewed coping strategies to better manage her stress and emotional responses. Assessment/Response: Mental status: The patient appears stressed and overwhelmed but is motivated to work on improving her situation. She is receptive to strategies aimed at increasing structure and emotional regulation. Risk: No immediate risk or safety concerns identified. However, ongoing issues with emotional eating and lack of structure warrant continued attention to address potential coping challenges. Assessment & Plan Assessment & Plan (1) Panic disorder: Code(s): F41.0 - Panic disorder [episodic paroxysmal anxiety] (2) Autism: Code(s): F84.0 - Autistic disorder (3) MDD (major depressive disorder), recurrent episode: Code(s): F33.9 - Major depressive disorder, recurrent, unspecified Qualifiers: Major depression episode severity: unspecified Qualified Code(s): F33.9 - Major depressive disorder, recurrent, unspecified Plan F/up in 2-3 weeks. Next hailey: 10/01/2024 at 11:30am, in person. Telehealth Telehealth Telehealth Platform: [facility] Location of provider rendering services: other Location of patient: address on file Patient Identification confirmed using: Name, : Yes Telehealth method: video Patient verbally consented to treatment: Yes Patient verbally consented to billing insurance company: Yes Patient informed of any privacy concerns related to visit: Yes Minutes spent on Phone/Video with Pt.: 60 Coding Level of Care Code Established Pt Tele Psytx >53 mins (53971) Patient Type Established Diagnoses Panic disorder F41.0 Autism F84.0 Episode of recurrent major depressive disorder, unspecified depression episode severity F33.9 Major depression episode severity: unspecified Time Spent (min) 60
--- OUTSIDE RECORDS SUMMARY | 2024-10-03 08:28 | XMS_ITS | Clinical Summary ---
Author Organization [facility] it Address [address] [place] [address] Care Team Providers Care Rock Duster Name Role Phone Unavailable Primary Care Provider [...]
== END 2024-10-03 09:09 | disposition home or self-care (01) ==
LOC: HO.HBST 08:12
PROVIDERS: PCP Nurse Practitioner Family; Visit Provider Counselor Mental Health
DX: F41.0 Panic disorder [episodic paroxysmal anxiety] (principal); F84.0 Autistic disorder; F33.9 Major depressive disorder, recurrent, unspecified
CPT/HCPCS: 90837